=== PATIENT | male | born 1955 | race Caucasian/White ===

== ENCOUNTER 2021-12-05 19:42 | Observation (INO) | payer OTHER ==
[2021-12-05 20:25] LABS: Appearance,Urine Clear (Clear); Bilirubin,Urine Negative (Negative); Blood,Urine Negative (Negative); Color,Urine Yellow; Glucose,Urine (UA) Negative (Negative); Ketones,Urine Negative (Negative); Leukocyte Esterase,Urine Negative (Negative); Nitrite,Urine Negative (Negative); PH, Urine 7.5 (5.0-8.0); Protein,Urine Negative (Negative)
[2021-12-06 04:11] LABS: Albumin 4.1 g/dL (3.5-5.0); Calcium 8.7 mg/dL (8.4-10.2); Potassium 4.2 mmol/L (3.5-5.1); Total Bilirubin 0.4 mg/dL (0.2-1.3); Total Protein 6.3 g/dL (6.3-8.2)
[2021-12-06 04:22] LABS: Basophils % (A) 0 %; Eosinophils # (A) 0.1 k/uL (0-0.7); Eosinophils % (A) 3 %; HCT 37.7 % (39.0-53.0); HGB 13.3 gm/dL (13.0-17.5); Lymphocytes # (A) 0.5 k/uL (1.0-4.8); Lymphocytes % (A) 17 %; MCH 30.8 pg (25.0-35.0); MCHC 35.3 g/dL (31.0-37.0); MCV 87.1 fL (80.0-100.0); Monocytes # (A) 0.2 k/uL (0-1.0); Monocytes % (A) 7 %; Neutrophils # (A) 2.3 k/uL (1.3-7.7); Neutrophils % (A) 72 %; RBC 4.32 m/uL (4.30-5.90); RDW 15.8 % (11.5-15.5); WBC 3.2 k/uL (3.8-10.6)
[2021-12-06 04:40] LABS: Large Platelets Present; Platelet Count 48 k/uL (150-450)
--- NOTE | 2021-12-06 07:23 | ED ---
Male Urogenital HPI - General Chief complaint: Urogenital Stated complaint: Urinary retention Time Seen by Provider: 12/06/21 02:08 Source: patient Mode of arrival: ambulatory Limitations: no limitations - History of Present Illness Initial comments: This patient is a 66-year-old man who presents with the complaint that he feels like he needs to urinate more completely. Patient believes that he is not emptying his bladder when he does urinate. He denies having hematuria or dysuria. Patient denies abdominal pain. No fever or chills, no chest pain or dyspnea. MD Complaint: other -: days(s) Location: abdomen Severity: mild Quality: dull Consistency: constant Improves with: none, urination Worsens with: none - Related Data Previous Rx's Medication Instructions Recorded Phenazopyridine [Pyridium] 100 mg PO TID #6 tablet 12/06/21 Allergies Allergy/AdvReac Type Severity Reaction Status Date / Time No Known Allergies Allergy Verified 12/05/21 19:51 Review of Systems ROS Statement: Those systems with pertinent positive or pertinent negative responses have been documented in the HPI. ROS Other: All systems not noted in ROS Statement are negative. Constitutional: Denies: fever, chills Respiratory: Denies: cough, dyspnea Cardiovascular: Denies: chest pain, palpitations, edema Gastrointestinal: Denies: abdominal pain, vomiting, diarrhea, constipation, melena, hematochezia Genitourinary: Reports: as per HPI. Denies: dysuria, frequency, hematuria, testicular pain, testicular mass Musculoskeletal: Denies: back pain Skin: Denies: rash Neurological: Denies: headache, weakness, numbness Past Medical History Past Medical History: Unable to Obtain History of Any Multi-Drug Resistant Organisms: None Reported Past Surgical History: Unable to Obtain Past Psychological History: Schizophrenia Smoking Status: Current every day smoker Past Alcohol Use History: None Reported Past Drug Use History: None Reported General Exam Limitations: no limitations General appearance: alert, in no apparent distress Head exam: Present: atraumatic, normocephalic Eye exam: Present: normal appearance. Absent: scleral icterus, conjunctival injection ENT exam: Present: normal oropharynx Neck exam: Present: normal inspection Respiratory exam: Present: normal lung sounds bilaterally. Absent: respiratory distress, wheezes, rales, rhonchi, stridor Cardiovascular Exam: Present: regular rate, normal rhythm, normal heart sounds. Absent: systolic murmur, diastolic murmur, rubs, gallop GI/Abdominal exam: Present: soft. Absent: distended, tenderness, guarding, rebound, rigid, mass Extremities exam: Present: normal inspection, normal capillary refill. Absent: pedal edema, calf tenderness Back exam: Present: normal inspection. Absent: CVA tenderness (R), CVA tenderness (L) Neurological exam: Present: alert Skin exam: Present: warm, dry, intact, normal color. Absent: rash Course Vital Signs 12/05/21 12/06/21 19:49 03:42 Temperature 97.6 F 98.3 F Pulse Rate 69 67 Respiratory 18 17 Rate Blood Pressure 119/69 119/77 O2 Sat by Pulse 98 96 Oximetry Medical Decision Making - Medical Decision Making This patient is 66-year-old man presenting with complaint related to urination and feeling he is not emptying his bladder. Patient is cleared in relation to that complaint, and we're preparing to discharge patient when he ended up having large amount of melanotic stool which did subsequently test occult blood positive. This patient will be admitted for serial hemoglobin and surgery/GI consult. - Lab Data Result diagrams: 12/06/21 03:51 12/06/21 03:51 Lab Results 12/05/21 12/06/21 12/06/21 Range/Units 19:58 03:51 03:51 WBC 3.2 L (3.8-10.6) k/uL RBC 4.32 (4.30-5.90) m/uL Hgb 13.3 (13.0-17.5) gm/dL Hct 37.7 L (39.0-53.0) % MCV 87.1 (80.0-100.0) fL MCH 30.8 (25.0-35.0) pg MCHC 35.3 (31.0-37.0) g/dL RDW 15.8 H (11.5-15.5) % Plt Count 48 L (150-450) k/uL MPV 10.0 Neutrophils % 72 % Lymphocytes % 17 % Monocytes % 7 % Eosinophils % 3 % Basophils % 0 % Neutrophils # 2.3 (1.3-7.7) k/uL Lymphocytes # 0.5 L (1.0-4.8) k/uL Monocytes # 0.2 (0-1.0) k/uL Eosinophils # 0.1 (0-0.7) k/uL Basophils # 0.0 (0-0.2) k/uL Manual Slide Review Performed Large Platelets Present Sodium 139 (137-145) mmol/L Potassium 4.2 (3.5-5.1) mmol/L Chloride 104 (98-107) mmol/L Carbon Dioxide 24 (22-30) mmol/L Anion Gap 11 mmol/L BUN 22 H (9-20) mg/dL Creatinine 1.10 (0.66-1.25) mg/dL Est GFR (CKD-EPI)AfAm 79 (>60 ml/min/1.73 sqM) Est GFR (CKD-EPI)NonAf 69 (>60 ml/min/1.73 sqM) Glucose 139 H (74-99) mg/dL Calcium 8.7 (8.4-10.2) mg/dL Total Bilirubin 0.4 (0.2-1.3) mg/dL AST 30 (17-59) U/L ALT 26 (4-49) U/L Alkaline Phosphatase 87 (38-126) U/L Total Protein 6.3 (6.3-8.2) g/dL Albumin 4.1 (3.5-5.0) g/dL Urine Color Yellow Urine Appearance Clear (Clear) Urine pH 7.5 (5.0-8.0) Ur Specific [place] 1.020 (1.001-1.035) Urine Protein Negative (Negative) Urine Glucose (UA) Negative (Negative) Urine Ketones Negative (Negative) Urine Blood Negative (Negative) Urine Nitrite Negative (Negative) Urine Bilirubin Negative (Negative) Urine Urobilinogen 4.0 (<2.0) mg/dL Ur Leukocyte Esterase Negative (Negative) Stool Occult Blood (Negative) 12/06/21 Range/Units 08:19 WBC (3.8-10.6) k/uL RBC (4.30-5.90) m/uL Hgb (13.0-17.5) gm/dL Hct (39.0-53.0) % MCV (80.0-100.0) fL MCH (25.0-35.0) pg MCHC (31.0-37.0) g/dL RDW (11.5-15.5) % Plt Count (150-450) k/uL MPV Neutrophils % % Lymphocytes % % Monocytes % % Eosinophils % % Basophils % % Neutrophils # (1.3-7.7) k/uL Lymphocytes # (1.0-4.8) k/uL Monocytes # (0-1.0) k/uL Eosinophils # (0-0.7) k/uL Basophils # (0-0.2) k/uL Manual Slide Review Large Platelets Sodium (137-145) mmol/L Potassium (3.5-5.1) mmol/L Chloride (98-107) mmol/L Carbon Dioxide (22-30) mmol/L Anion Gap mmol/L BUN (9-20) mg/dL Creatinine (0.66-1.25) mg/dL Est GFR (CKD-EPI)AfAm (>60 ml/min/1.73 sqM) Est GFR (CKD-EPI)NonAf (>60 ml/min/1.73 sqM) Glucose (74-99) mg/dL Calcium (8.4-10.2) mg/dL Total Bilirubin (0.2-1.3) mg/dL AST (17-59) U/L ALT (4-49) U/L Alkaline Phosphatase (38-126) U/L Total Protein (6.3-8.2) g/dL Albumin (3.5-5.0) g/dL Urine Color Urine Appearance (Clear) Urine pH (5.0-8.0) Ur Specific [place] (1.001-1.035) Urine Protein (Negative) Urine Glucose (UA) (Negative) Urine Ketones (Negative) Urine Blood (Negative) Urine Nitrite (Negative) Urine Bilirubin (Negative) Urine Urobilinogen (<2.0) mg/dL Ur Leukocyte Esterase (Negative) Stool Occult Blood Positive (Negative) Disposition Clinical Impression: Dysuria, GI bleeding Disposition: ADMITTED IP TO THIS [facility] Condition: Good Instructions (If sedation given, give patient instructions): Dysuria (ED) Prescriptions: Phenazopyridine [Pyridium] 100 mg PO TID #6 tablet Is patient prescribed a controlled substance at d/c from ED?: No Referrals: None,Stated [Primary Care Provider] - 1-2 days
[2021-12-06] MEDS ORDERED: NALOXONE 0.4 MG/ML 1 ML VIAL IV PRN (08:50)
[2021-12-06] MEDS ORDERED: ACETAMINOPHEN TAB 325 MG TAB PO PRN ×2 (08:50→15:09)
[2021-12-06] MEDS ORDERED: SODIUM CHLORIDE 0.9% 1,000 ML IV SCH (09:00)
[2021-12-06 09:35] LABS: HCT 37.6 % (39.0-53.0); HGB 12.7 gm/dL (13.0-17.5); MCH 29.8 pg (25.0-35.0); MCHC 33.9 g/dL (31.0-37.0); MCV 87.8 fL (80.0-100.0); Mean Platelet Volume 10.8; RBC 4.28 m/uL (4.30-5.90); WBC 3.4 k/uL (3.8-10.6)
[2021-12-06 09:37] LABS: Platelet Count 55 k/uL (150-450)
--- NOTE | 2021-12-06 11:42 | P.HPIM ---
History of Present Illness H&P Date: 12/06/21 Chief Complaint: Urinary frequency Patient is a 66-year-old male with a past medical history of liver cirrhosis and alcohol abuse who is a poor historian and does not know what medications he takes presents to the ED because of frequent urination. Patient denies any urinary hesitancy or difficulty to start urinating and also states that he has a good urine stream. Workup in the ED was negative for UTI and bladder scan also negative for retention. Patient was getting ready to be discharged however he then had a large melanotic bowel movement. So then he was referred for admission. In the ED patient platelets were 48. Initial hemoglobin was 13.3. After the melanotic bowel movement his hemoglobin was stable at 12.7. Patient states that all his care is at the [facility]. He states that he has not had a drink in over a year. Review of Systems 10 ROS reviewed and are negative except as noted in HPI Past Medical History Past Medical History: Unable to Obtain History of Any Multi-Drug Resistant Organisms: None Reported Past Surgical History: Unable to Obtain Past Psychological History: Schizophrenia Smoking Status: Current every day smoker Past Alcohol Use History: None Reported Past Drug Use History: None Reported Medications and Allergies Home Medications Medication Instructions Recorded Confirmed Type Phenazopyridine [Pyridium] 100 mg PO TID #6 tablet 12/06/21 Rx Allergies Allergy/AdvReac Type Severity Reaction Status Date / Time No Known Allergies Allergy Verified 12/05/21 19:51 Physical Exam Osteopathic Statement: *. No significant issues noted on an osteopathic structural exam other than those noted in the History and Physical/Consult. Vitals: Vital Signs Temp Pulse Pulse Resp BP BP Pulse Ox 12/06/21 10:10 98 F 66 19 137/68 99 12/06/21 09:48 97.8 F 67 18 113/69 97 12/06/21 03:42 98.3 F 67 17 119/77 96 12/05/21 19:49 97.6 F 69 18 119/69 98 Intake and Output 12/05/21 12/06/21 12/06/21 22:59 06:59 14:59 Other: Weight 90.718 kg General: [Alert and oriented, well nourished, no acute distress, appears chronically debilitated]. Eye: [PERRL, EOMI, normal conjunctiva]. HENT: [Normocephalic, clear tympanic membranes, normal hearing, moist oral mucosa, no scleral icterus, no sinus tenderness]. Neck: [Supple, non-tender, no carotid bruits, no JVD, no lymphadenopathy]. Lungs: [Clear to auscultation and percussion, non-labored respiration]. Heart: [Normal rate, regular rhythm, no murmur, gallop or edema]. Abdomen: [Soft, non-tender, non-distended, normal bowel sounds, no masses]. Musculoskeletal: [Normal range of motion and strength, no tenderness or swelling]. Skin: [Skin is warm, dry and pink, no rashes or lesions]. Neurologic: [Awake, alert, and oriented X3, CN II-XII intact]. Psychiatric: [Cooperative, appropriate mood and affect]. Results CBC & Chem 7: 12/06/21 08:50 12/06/21 03:51 Labs: Abnormal Lab Results - Last 24 Hours (Table) 12/06/21 12/06/21 12/06/21 Range/Units 03:51 03:51 08:50 WBC 3.2 L 3.4 L (3.8-10.6) k/uL RBC 4.28 L (4.30-5.90) m/uL Hgb 12.7 L (13.0-17.5) gm/dL Hct 37.7 L 37.6 L (39.0-53.0) % RDW 15.8 H 16.0 H (11.5-15.5) % Plt Count 48 L 55 L (150-450) k/uL Lymphocytes # 0.5 L (1.0-4.8) k/uL BUN 22 H (9-20) mg/dL Glucose 139 H (74-99) mg/dL Assessment and Plan Assessment: Melanotic stool Suspect upper GI bleed Thrombocytopenia likely due to her liver cirrhosis -Stool occult is positive -Trend hemoglobin every 6 hours -Patient is hemodynamically stable -We'll transfuse 2 units of platelets -Check PT and PTT -IV protonix 40 mg twice a day -Clear liquid diet -GI consult Thrombocytopenia and leukopenia likely due to liver cirrhosis -We'll consult hematology -Patient is a less than 50 and also having active bleeding so transfuse 2 units of platelets Liver Cirrhosis -Compensated History of alcohol abuse History of polysubstance abuse including cocaine Patient states that he has not had a drink in over a year and he has not done drugs in many years. Patient does not know what medications he is on. He states that his care is at the [facility]. I asked the nurse to call his friend to try and confirm his medications. CODE STATUS: DNR/DNI DVT prophylaxis: mechanical Discussed with: Patient, ER, rn Anticipated length of stay < than [address]: home A total of 75 minutes was spent on the care of this complex patient more than 50% of the time was spent in counseling and care coordination.
[2021-12-06 11:51] LABS: INR 1.1 (<1.2); Partial Thromboplastin Time 27.9 sec (22.0-30.0); Prothrombin Time 11.9 sec (9.0-12.0)
[2021-12-06] MEDS: PANTOPRAZOLE 40 MG/10 ML VIAL IVP SCH ×2 (13:38→19:53)
--- NOTE | 2021-12-06 14:13 | P.CONS ---
History of Present Illness - Reason for Consult Consult date: 12/06/21 Thrombocytopenia, lymphopenia - Chief Complaint GI bleeding - History of Present Illness Mr. Foley is a 66-year-old gentleman with a noted history of liver cirrhosis and prior history of alcohol abuse as well as polysubstance abuse who initially presented to the ED with urinary retention. This issue had been resolved and the ED and had been cleared for discharge when he had a large melanotic bowel movement. Given this development, he was admitted to internal medicine for additional management and monitoring. CBC on initial presentation was significant for white blood cell count 3.2 (absolute lymphocyte count 0.5, absolute neutrophil count 2.3), hemoglobin 13.3, platelet count 48. Repeat CBC after the melanotic bowel movement noted a white blood cell count 3.4, hemoglobin 12.7, platelet count 55. Upon my discussion with Mr. Foley, he reports having had melanotic stools prior to presentation, but he is unable to quantify how many along with the duration of time elapsed since this started. He denies any current alcohol use, but noted drinking in the past. He is unable to quantify how long he had been drinking alcohol prior to abstinence. He reports crack cocaine use in the past, but denied any IV drug abuse. He reports having had loss of weight over the past 6 months to one year, losing about 20 pounds. He attributes this to not eating well, and stating "they don't make any good food". He lives with a roommate in an apartment, but says this is not an assisted living facility. He denies any fevers, chills, night sweats, or lymphadenopathy. He denies any pr ior history of blood clots in the legs or abdomen. Reports taking medications at home, but is unable to state what these medications are. Review of Systems 14 point review of systems conducted with pertinent positives and negatives as noted per HPI Past Medical History Past Medical History: GERD/Reflux, Hypertension, Prostate Disorder Additional Past Medical History / Comment(s): Hepatitis, History of Any Multi-Drug Resistant Organisms: None Reported Past Surgical History: Unable to Obtain Past Anesthesia/Blood Transfusion Reactions: No Reported Reaction Past Psychological History: Schizophrenia Additional Psychological History / Comment(s): Pt denies this he states, "That's a lable they put on me so they could get my money that's all." Smoking Status: Current every day smoker Past Alcohol Use History: None Reported Past Drug Use History: None Reported - Past Family History Father History Unknown: Yes Mother History Unknown: Yes Medications and Allergies Home Medications Medication Instructions Recorded Confirmed Type Acamprosate Calcium [Campral] 333 mg PO TID 12/06/21 12/06/21 History Acetaminophen Tab [Tylenol] 650 mg PO Q6H PRN 12/06/21 12/06/21 History Ascorbic Acid [Vitamin C] 250 mg PO DAILY@79912/06/21 12/06/21 History Cholecalciferol [Vitamin D3 (25 50 mcg PO DAILY@79912/06/21 12/06/21 History Mcg = 1000 Iu)] Cyanocobalamin (Vitamin B-12) 1,000 mcg PO DAILY@79912/06/21 12/06/21 History [Vitamin B-12] Daily-Jacey 1 tab PO DAILY@79912/06/21 12/06/21 History Ferrous Sulfate [Iron] 325 mg PO DAILY@79912/06/21 12/06/21 History Folic Acid 1 mg PO DAILY@79912/06/21 12/06/21 History Ibuprofen [Motrin] 800 mg PO TID PRN 12/06/21 12/06/21 History LORazepam [Ativan] 0.5 mg PO HS@199912/06/21 12/06/21 History Lurasidone [Latuda] 80 mg PO HS@199912/06/21 12/06/21 History Mirtazapine [Remeron] 15 mg PO HS@199912/06/21 12/06/21 History Omeprazole 20 mg PO DAILY@79912/06/21 12/06/21 History Phenazopyridine [Pyridium] 100 mg PO TID #6 tablet 12/06/21 Rx Tamsulosin HCl [Flomax] 0.8 mg PO DAILY@79912/06/21 12/06/21 History Thiamine [Vitamin B-1] 100 mg PO DAILY@79912/06/21 12/06/21 History lisinopriL [Prinivil] 10 mg PO DAILY@79912/06/21 12/06/21 History traZODone HCL 100 mg PO HS@199912/06/21 12/06/21 History Allergies Allergy/AdvReac Type Severity Reaction Status Date / Time No Known Allergies Allergy Verified 12/06/21 13:27 Physical Exam Vitals: Vital Signs Temp Pulse Pulse Resp BP BP Pulse Ox 12/06/21 10:10 98 F 66 19 137/68 99 12/06/21 09:48 97.8 F 67 18 113/69 97 12/06/21 03:42 98.3 F 67 17 119/77 96 12/05/21 19:49 97.6 F 69 18 119/69 98 Intake and Output 12/05/21 12/06/21 12/06/21 22:59 06:59 14:59 Other: Weight 90.718 kg 90.718 kg Fatigued-appearing gentleman - Constitutional General appearance: disheveled, no acute distress - EENT Eyes: EOMI - Respiratory Respiratory: bilateral: CTA - Cardiovascular Rhythm: regular - Gastrointestinal General gastrointestinal: hepatomegaly, normal bowel sounds, soft, no splenomegaly - Integumentary Integumentary: pale Results CBC & Chem 7: 12/06/21 08:50 12/06/21 03:51 Labs: Abnormal Lab Results - Last 24 Hours (Table) 12/06/21 12/06/21 12/06/21 Range/Units 03:51 03:51 08:50 WBC 3.2 L 3.4 L (3.8-10.6) k/uL RBC 4.28 L (4.30-5.90) m/uL Hgb 12.7 L (13.0-17.5) gm/dL Hct 37.7 L 37.6 L (39.0-53.0) % RDW 15.8 H 16.0 H (11.5-15.5) % Plt Count 48 L 55 L (150-450) k/uL Lymphocytes # 0.5 L (1.0-4.8) k/uL BUN 22 H (9-20) mg/dL Glucose 139 H (74-99) mg/dL Assessment and Plan Assessment: Mr. Foley is a 66-year-old gentleman who initially presented to the ED for urinary retention, but subsequently developed melena, for which he is currently admitted for. He does have evidence of lymphopenia and thrombocytopenia on labs for which hematology is consulted. Plan: #Lymphopenia, thrombocytopenia -He's had no prior lab documentation in either the [facility] system or locally at [facility] -This makes his baseline blood counts unclear at this time in addition to the fact that he is not a good historian -If he does in fact have cirrhosis, this could explain the thrombocytopenia -An addition, he did admit to prior substance abuse -Recommend obtaining PT/INR, a PTT, and fibrinogen to rule out DIC (unlikely given the current clinical presentation) -Recommend obtaining acute hepatitis panel and HIV antibodies given the potential history for cirrhosis, polysubstance abuse, and lymphopenia -Recommend obtaining vitamin B12 and folate given the weight loss and concern for imbalance diet -Obtaining medication list would be helpful to rule out potential medication- induced causes of thrombocytopenia #GI bleeding -Noted to have melanotic stool in the ED with reported melanotic stools at home of unclear quantity or duration -Agree with GI consult for workup and endoscopy -From hematology perspective, platelets should be transfused for platelets less than 50,000 given active bleeding -Endoscopy has been previously reported to have been safe with platelets above 20,000 -Transfuse for hemoglobin less than 7
[2021-12-06 15:08] LABS: HCT 39.8 % (39.0-53.0); HGB 12.8 gm/dL (13.0-17.5); MCH 30.3 pg (25.0-35.0); MCHC 32.3 g/dL (31.0-37.0); Mean Platelet Volume 10.7; RBC 4.24 m/uL (4.30-5.90); RDW 15.9 % (11.5-15.5); WBC 1.9 k/uL (3.8-10.6)
[2021-12-06 15:16] LABS: MCV 93.7 fL (80.0-100.0); Platelet Count 41 k/uL (150-450)
[2021-12-06 17:12] LABS: Hepatitis A Antibody IgM Nonreactive (Nonreactive); Hepatitis B Core IgM Nonreactive (Nonreactive); Hepatitis B Surface Antigen Nonreactive (Nonreactive); Hepatitis C IgG Antibody Reactive (Nonreactive)
[2021-12-06] MEDS: LURASIDONE 80 MG TAB PO SCH (19:52)
[2021-12-06] MEDS: LORazepam 0.5 MG TAB PO SCH (19:52)
[2021-12-06] MEDS: MIRTAZAPINE 15 MG TAB PO SCH (19:53)
[2021-12-06] MEDS ORDERED: traZODone HCL 100 MG TAB PO SCH (20:00)
[2021-12-06] MEDS: traZODone HCL 100 MG TAB PO SCH (21:00)
[2021-12-06 21:49] LABS: HCT 39.4 % (39.0-53.0); HGB 12.7 gm/dL (13.0-17.5); MCH 29.8 pg (25.0-35.0); MCHC 32.4 g/dL (31.0-37.0); MCV 92.1 fL (80.0-100.0); Mean Platelet Volume 11.2; RBC 4.27 m/uL (4.30-5.90); WBC 2.5 k/uL (3.8-10.6)
[2021-12-06 21:50] LABS: Platelet Count 56 k/uL (150-450)
[2021-12-07] MEDS ORDERED: PANTOPRAZOLE 40 MG TABLET PO SCH (08:00)
[2021-12-07 09:26] LABS: HIV 2 AB Non-Reactive (Non-Reactive); HIV AB P24 Non-Reactive (Non-Reactive); HIV P24 AG Non-Reactive (Non-Reactive)
[2021-12-07 09:29] LABS: HCT 39.2 % (39.6-50.0); HGB 13.1 g/dL (13.0-17.0); Immature Platelet Fraction 5.7 % (1.1-6.1); MCH 29.6 pg (27.0-32.0); MCHC 33.4 g/dL (32.0-37.0); MCV 88.5 fL (80.0-97.0); Mean Platelet Volume 11.5 fL (9.5-12.2); NRBC Per 100 WBC 0 /100 WBCS (0.0-0.0); Platelet Count 62 X 10*3/uL (140-440); RBC 4.43 X 10*6/uL (4.40-5.60); RBC Morphology NORMAL; RDW 15.9 % (11.5-14.5); WBC 2.41 X 10*3/uL (4.50-10.00)
--- NOTE | 2021-12-07 09:55 | P.CONS ---
History of Present Illness - Reason for Consult Consult date: 12/07/21 GI bleed Requesting physician: Doyle Balderas - Chief Complaint Urinary retention - History of Present Illness This is a 58-year-old male who presented to the emergency department yesterday with complaints of urinary retention and inability to fully empty his bladder. While in the emergency room his symptoms have resolved, however patient reportedly had a large maroon colored stool. He had a positive stool occult. Gastroenterology was consulted for GI bleed. Patient has a past medical history of alcohol abuse, drug abuse admits to crack cocaine, schizophrenia, current smoker, possible cirrhosis of the liver. On this admission patient was noted to be thrombocytopenic, hematology was consulted. They gave him 2 units of platelets for platelet count 48,000. Patient denies any anticoagulation or NSAID use. States he's been having maroon-colored stools and black stools off and on for some time. He could not give me specific time. He denies any abdominal pain, nausea or vomiting. He states he has had an EGD and colonoscopy in the past, again however he is not able to put a timeframe on it. Patient to come back positive for hepatitis C antibody, he states he was treated about 2 years ago, cannot tell me what medication he was on. Labs: UPC 2.4 hemoglobin 13 hematocrit 39 platelet count 62,000 INR 1.1 sodium 139 potassium 4.2 albumin 22 creatinine 1.10 total bili 0.4 AST 30 EST 26 alkaline phosphatase 87 Stool occult blood positive, hepatitis C antibody reactive Review of Systems REVIEW OF SYSTEMS: CARDIOPULMONARY: No chest pain or shortness of breath. Gastrointestinal: No epigastric or abdominal pain. No nausea or vomiting. No hematemesis, coffee-ground emesis. Melanoma. GENITOURINARY: No dysuria or hematuria. Urinary retention, patient states now resolved. MUSCULOSKELETAL: Reports normal range of motion., Joint pain. SKIN: No rashes. No jaundice. ENDOCRINE: No chills, fevers. No excessive weight gain or loss. No polydipsia or polyuria. PSYCHIATRIC: Unremarkable. NEUROLOGY: No change in mental status. Denies dizziness, headache. ENT: Vision unremarkable. CONSTITUTIONAL: No recent weight loss. No fever, chills, night sweats. Past Medical History Past Medical History: GERD/Reflux, Hypertension, Prostate Disorder Additional Past Medical History / Comment(s): Hepatitis, History of Any Multi-Drug Resistant Organisms: None Reported Past Surgical History: Unable to Obtain Past Anesthesia/Blood Transfusion Reactions: No Reported Reaction Past Psychological History: Schizophrenia Additional Psychological History / Comment(s): Pt denies this he states, "That's a lable they put on me so they could get my money that's all." Smoking Status: Current every day smoker Past Alcohol Use History: None Reported Past Drug Use History: None Reported - Past Family History Father History Unknown: Yes Mother History Unknown: Yes Medications and Allergies Home Medications Medication Instructions Recorded Confirmed Type Acamprosate Calcium [Campral] 333 mg PO TID 12/06/21 12/06/21 History Acetaminophen Tab [Tylenol] 650 mg PO Q6H PRN 12/06/21 12/06/21 History Ascorbic Acid [Vitamin C] 250 mg PO DAILY@79912/06/21 12/06/21 History Cholecalciferol [Vitamin D3 (25 50 mcg PO DAILY@79912/06/21 12/06/21 History Mcg = 1000 Iu)] Cyanocobalamin (Vitamin B-12) 1,000 mcg PO DAILY@79912/06/21 12/06/21 History [Vitamin B-12] Daily-Jacey 1 tab PO DAILY@79912/06/21 12/06/21 History Ferrous Sulfate [Iron] 325 mg PO DAILY@79912/06/21 12/06/21 History Folic Acid 1 mg PO DAILY@79912/06/21 12/06/21 History Ibuprofen [Motrin] 800 mg PO TID PRN 12/06/21 12/06/21 History LORazepam [Ativan] 0.5 mg PO HS@199912/06/21 12/06/21 History Lurasidone [Latuda] 80 mg PO HS@199912/06/21 12/06/21 History Mirtazapine [Remeron] 15 mg PO HS@199912/06/21 12/06/21 History Omeprazole 20 mg PO DAILY@79912/06/21 12/06/21 History Phenazopyridine [Pyridium] 100 mg PO TID #6 tablet 12/06/21 Rx Tamsulosin HCl [Flomax] 0.8 mg PO DAILY@79912/06/21 12/06/21 History Thiamine [Vitamin B-1] 100 mg PO DAILY@79912/06/21 12/06/21 History lisinopriL [Prinivil] 10 mg PO DAILY@79912/06/21 12/06/21 History traZODone HCL 400 mg PO HS@199912/06/21 12/06/21 History Allergies Allergy/AdvReac Type Severity Reaction Status Date / Time No Known Allergies Allergy Verified 12/06/21 13:27 Physical Exam Vitals: Vital Signs Temp Pulse Pulse Resp BP BP BP 12/07/21 07:00 97.8 F 89 18 149/86 12/07/21 02:35 97.9 F 66 17 129/68 12/06/21 19:35 97.7 F 62 18 137/71 12/06/21 18:10 98.4 F 73 16 145/80 12/06/21 17:20 97.6 F 62 16 135/73 12/06/21 17:00 97.9 F 62 16 113/66 12/06/21 16:51 97.6 F 62 14 105/63 12/06/21 16:46 97.6 F 62 14 105/63 12/06/21 16:04 97.5 F L 64 16 130/67 12/06/21 15:44 98.1 F 63 14 105/63 12/06/21 15:34 97.7 F 62 16 99/61 12/06/21 14:55 98.2 F 70 20 98/61 12/06/21 10:10 98 F 66 19 137/68 12/06/21 09:48 97.8 F 67 18 113/69 Pulse Ox 12/07/21 07:00 97 12/07/21 02:35 98 12/06/21 19:35 97 12/06/21 18:10 96 12/06/21 17:20 97 12/06/21 17:00 94 L 12/06/21 16:51 96 12/06/21 16:46 96 12/06/21 16:04 99 12/06/21 15:44 95 12/06/21 15:34 96 12/06/21 14:55 93 L 12/06/21 10:10 99 12/06/21 09:48 97 Intake and Output 09/25/22 09/26/22 09/26/22 22:59 06:59 14:59 Intake Total 906 Output Total 120 Balance 786 Intake: Oral 222 Blood Product 684 Platelet Pheresis Pas 346 Psoralen Unit [id number] Platelet Pheresis Pas 338 Psoralen Unit [id number] Output: Post Void Residual 120 Other: Voiding Method Toilet Diaper Incontinent # Voids 4 4 General appearance: The patient is alert, oriented, appears in no acute distress. HET: Head is normocephalic and atraumatic. Conjunctiva pink. Sclera anicteric. Neck: Supple without lymphadenopathy. Trachea midline. Heart: S1 S2. Regular rate and rhythm. Lungs: Clear to auscultation. Abdomen: Soft, nontender, nondistended with bowel sounds. No guarding or rigidity. Skin: No rashes. No jaundice. Extremities: Normal skin color and turgor. No pedal edema. Neurological: No focal deficits. Alert and oriented x3. Results CBC & Chem 7: 12/07/21 05:53 12/06/21 03:51 Labs: Abnormal Lab Results - Last 24 Hours (Table) 12/06/21 12/06/21 12/06/21 Range/Units 08:50 11:12 14:54 WBC 3.4 L 1.9 L (3.8-10.6) k/uL RBC 4.28 L 4.24 L (4.30-5.90) m/uL Hgb 12.7 L 12.8 L (13.0-17.5) gm/dL Hct 37.6 L (39.0-53.0) % RDW 16.0 H 15.9 H (11.5-15.5) % Plt Count 55 L 41 L (150-450) k/uL Plt Count Comment Hep C IgG Ab Reactive A (Nonreactive) 12/06/21 12/07/21 Range/Units 21:33 05:53 WBC 2.5 L 2.41 L (3.8-10.6) k/uL RBC 4.27 L (4.30-5.90) m/uL Hgb 12.7 L (13.0-17.5) gm/dL Hct 39.2 L (39.0-53.0) % RDW 16.0 H 15.9 H (11.5-15.5) % Plt Count 56 L 62 L (150-450) k/uL Plt Count Comment DECREASED A Hep C IgG Ab (Nonreactive) Assessment and Plan (1) GI bleeding Narrative/Plan: 58-year-old with a history of schizophrenia hepatitis C, alcohol abuse and drug abuse presented to the emergency room with urinary retention which resolved. During the ER visit he had a large room colored stool. Patient was admitted for further observation and GI bleed. Patient is poor historian states he had EGD and colonoscopy done however unsure when. States he has had prior melena. No anticoagulation. Unsure of a history of cirrhosis of the liver but states that he was positive for hepatitis C and treated 2 years ago. Possible etiologies of blood loss could be related to esophageal varices, gastritis, esophagitis, AVM, or other possible etiologies. With unknown duration on last EGD/colonoscopy, recommend both the EGD and colonoscopy during this hospitalization. Patient is refusing at this time. He does have a legal guardian, therefore will recommend social work consultation. Patient has now decided that he would proceed with EGD and colonoscopy. This will be scheduled for tomorrow. Current Visit: Yes Status: Acute Code(s): K92.2 - GASTROINTESTINAL HEMO RRHAGE, UNSPECIFIED SNOMED Code(s): 47583463 (2) Thrombocytopenia Current Visit: Yes Status: Acute Priority: Medium Code(s): D69.6 - THROMBOCYTOPENIA, UNSPECIFIED SNOMED Code(s): 755733733 (3) Positive hepatitis C antibody test Current Visit: Yes Status: Acute Code(s): R76.8 - OTHER SPECIFIED ABNORMAL IMMUNOLOGICAL FINDINGS IN SERUM SNOMED Code(s): 557729619 Plan: 1. Continue symptomatic and supportive care 2. Continue clear liquid diet, nothing by mouth after midnight 3. Avoid NSAIDs, anticoagulation 4. Daily CBC, transfuse for hemoglobin less than 7 5. Hepatitis C positive antibody, will order quantitative studies 6. Appreciate recommendations from hematology 7. Recommend EGD and colonoscopy, this will be scheduled for tomorrow. Please obtain consent from legal guardian. Please discuss with medicine team to make patient a full code. 8. Will order social work consult, patient has documented schizophrenia and has a legal guardian Thank you for this consultation, we will continue to follow. Dr. Damaris Gustafson I agree with the dictator's note, documented as a scribe by Aislinn Avila
[2021-12-07] MEDS: MULTIVITAMINS, THERA 1 EACH TAB PO SCH (10:33)
[2021-12-07] MEDS: TAMSULOSIN 0.4 MG CAP.ER.24H PO SCH (10:33)
[2021-12-07] MEDS: lisinopriL 10 MG TAB PO SCH (10:33)
[2021-12-07] MEDS: FERROUS SULFATE 325 MG TAB PO SCH (10:34)
[2021-12-07] MEDS: CYANOCOBALAMIN 500 MCG TAB PO SCH (10:35)
[2021-12-07] MEDS: CHOLECALCIFEROL 25 MCG (1000 IU) TABLET PO SCH (10:35)
[2021-12-07] MEDS: THIAMINE 100 MG TAB PO SCH (10:36)
[2021-12-07] MEDS: FOLIC ACID 1 MG TAB PO SCH (10:36)
[2021-12-07] MEDS: PANTOPRAZOLE 40 MG/10 ML VIAL IVP SCH ×2 (12:33→19:45)
[2021-12-07] MEDS ORDERED: PEG 3350 (236 GM/BTL) + LYTES 4,000 ML BOTTLE PO ONE (13:17)
--- NOTE | 2021-12-07 13:29 | P.PN ---
Subjective Progress Note Date: 12/07/21 Principal diagnosis: thrombocytopenia, leukopenia In follow-up today patient did not want to respond to questions, slightly irritable. He reported that he does have a history of hepatitis C but it was treated. He is denying any physical complaints at this time. Objective - Vital Signs Vital signs: Vital Signs Temp 97.8 F 12/07/21 07:00 Pulse 89 12/07/21 07:00 Resp 18 12/07/21 07:00 BP 149/86 12/07/21 07:00 Pulse Ox 97 12/07/21 07:00 FiO2 Intake & Output 12/06/21 12/07/21 12/07/21 18:59 06:59 18:59 Intake Total 1226 Output Total 120 Balance 1106 Weight 90.718 kg 90.718 kg Intake: Oral 542 Blood Product 684 Platelet Pheresis Pas 346 Psoralen Unit [id number] Platelet Pheresis Pas 338 Psoralen Unit [id number] Output: Post Void Residual 120 Other: Voiding Method Toilet Toilet Diaper Diaper Incontinent Incontinent # Voids 1 4 - Constitutional General appearance: Present: average body habitus, no acute distress - EENT ENT: Present: hearing grossly normal - Respiratory Respiratory: bilateral: CTA - Cardiovascular Rhythm: regular Heart sounds: normal: S1, S2 - Musculoskeletal Musculoskeletal: Present: strength equal bilaterally - Psychiatric Psychiatric: Present: A&O x's 3 - Labs CBC & Chem 7: 12/07/21 05:53 12/06/21 03:51 Labs: Abnormal Lab Results - Last 24 Hours (Table) 12/06/21 12/06/21 12/06/21 Range/Units 11:12 14:54 21:33 WBC 1.9 L 2.5 L (3.8-10.6) k/uL RBC 4.24 L 4.27 L (4.30-5.90) m/uL Hgb 12.8 L 12.7 L (13.0-17.5) gm/dL Hct (39.6-50.0) % RDW 15.9 H 16.0 H (11.5-15.5) % Plt Count 41 L 56 L (150-450) k/uL Plt Count Comment Hep C IgG Ab Reactive A (Nonreactive) 12/07/21 Range/Units 05:53 WBC 2.41 L (3.8-10.6) k/uL RBC (4.30-5.90) m/uL Hgb (13.0-17.5) gm/dL Hct 39.2 L (39.6-50.0) % RDW 15.9 H (11.5-15.5) % Plt Count 62 L (150-450) k/uL Plt Count Comment DECREASED A Hep C IgG Ab (Nonreactive) Assessment and Plan (1) Thrombocytopenia Current Visit: Yes Status: Acute Priority: Medium Code(s): D69.6 - THROMBOCYTOPENIA, UNSPECIFIED SNOMED Code(s): 626263574 (2) Leukopenia Current Visit: Yes Status: Acute Priority: Medium Code(s): D72.819 - DECREASED WHITE BLOOD CELL COUNT, UNSPECIFIED SNOMED Code(s): 45599329 Plan: Much of the bicytopenia workup is still pending. No deficiencies thus far noted. Iron studies more consistent with anemia of inflammation. No progression of cytopenias. No need for transfusions at this time. Ultrasound of the liver and spleen ordered. Hep C RNA ordered. Final recommendations based on completion of workup. Dr. chávez tests: I seen and examined patient, performed H&P, developed impression and plan of care. Discussed with dictator. Agree with documentation, dictated as a scribe
--- NOTE | 2021-12-07 13:31 | P.PN ---
Subjective Progress Note Date: 12/07/21 Patient was seen by GI and he refused EGD and colonoscopy. When I spoke with the patient he then agreed to having the EGD done. I also spoke with the legal guardian who give consent for the EGD. Objective - Vital Signs Vital signs: Vital Signs Temp 97.8 F 12/07/21 07:00 Pulse 89 12/07/21 07:00 Resp 18 12/07/21 07:00 BP 149/86 12/07/21 07:00 Pulse Ox 97 12/07/21 07:00 FiO2 Intake & Output 12/06/21 12/07/21 12/07/21 18:59 06:59 18:59 Intake Total 1226 Output Total 120 Balance 1106 Weight 90.718 kg 90.718 kg Intake: Oral 542 Blood Product 684 Platelet Pheresis Pas 346 Psoralen Unit [id number] Platelet Pheresis Pas 338 Psoralen Unit [id number] Output: Post Void Residual 120 Other: Voiding Method Toilet Toilet Diaper Diaper Incontinent Incontinent # Voids 1 4 - Exam General examination - Alert and Oriented 3 in NAD Heart - + S1S2 no murmurs Lungs - Clear to auscultation Abdomen soft NT ND +ve BS Extremities - No edema 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 - Moving all 4 extremities spontaneously Psych - Calm and cooperative - Labs CBC & Chem 7: 12/07/21 05:53 12/06/21 03:51 Labs: Abnormal Lab Results - Last 24 Hours (Table) 12/06/21 12/06/21 12/06/21 Range/Units 11:12 14:54 21:33 WBC 1.9 L 2.5 L (3.8-10.6) k/uL RBC 4.24 L 4.27 L (4.30-5.90) m/uL Hgb 12.8 L 12.7 L (13.0-17.5) gm/dL Hct (39.6-50.0) % RDW 15.9 H 16.0 H (11.5-15.5) % Plt Count 41 L 56 L (150-450) k/uL Plt Count Comment Hep C IgG Ab Reactive A (Nonreactive) 12/07/21 Range/Units 05:53 WBC 2.41 L (3.8-10.6) k/uL RBC (4.30-5.90) m/uL Hgb (13.0-17.5) gm/dL Hct 39.2 L (39.6-50.0) % RDW 15.9 H (11.5-15.5) % Plt Count 62 L (150-450) k/uL Plt Count Comment DECREASED A Hep C IgG Ab (Nonreactive) Assessment and Plan Assessment: Melanotic stool Suspect upper GI bleed Thrombocytopenia likely due to her liver cirrhosis -Stool occult is positive -Trend hemoglobin every 6 hours -> hemoglobin is stable this morning -Patient is hemodynamically stable -2 units of platelets transfused on admission -Coags are within normal limits -IV protonix 40 mg twice a day -Clear liquid diet -Patient initially refused EGD and colonoscopy. He is now amenable. I spoke with her legal guardian who give consent. GI was contacted to let them know that the patient is now amenable. GI said they'll do the EGD and colonoscopy tomorrow. Thrombocytopenia and leukopenia likely due to liver cirrhosis -Outpatient workup from hematology -Platelets are stable this morning Hepatitis C antibody positive -Appreciated workup from gastroenterology -> quantitative hepatitis C RNA ordered Liver Cirrhosis -Compensated History of alcohol abuse History of polysubstance abuse including cocaine Patient states that he has not had a drink in over a year and he has not done drugs in many years. No signs of alcohol withdrawal this morning Psychiatric issues Resume home meds CODE STATUS: DNR/DNI DVT prophylaxis: mechanical Discussed with: Patient, ER, rn Anticipated length of stay < than [address]: home
[2021-12-07 16:23] LABS: Protein, Total 6.2 g/dL (6.2-8.2)
[2021-12-07] MEDS: MIRTAZAPINE 15 MG TAB PO SCH (19:45)
[2021-12-07] MEDS: LURASIDONE 80 MG TAB PO SCH (19:45)
[2021-12-07] MEDS: LORazepam 0.5 MG TAB PO SCH (19:46)
[2021-12-07] MEDS: traZODone HCL 100 MG TAB PO SCH (19:46)
--- NOTE | 2021-12-08 09:22 | US ---
EXAMINATION TYPE: US abdomen complete DATE OF EXAM: 12/08/2021 COMPARISON: NONE CLINICAL HISTORY: EtOH history, thrombocytopenia, hepatitis C. Inpatient exam. Poor historian. TECHNIQUE: Multiple sonographic images of the abdomen are obtained. FINDINGS: EXAM MEASUREMENTS: Liver Length: 15.7 cm Gallbladder Wall: 0.1 cm CBD: 0.5 cm Spleen: 18.0 cm Right Kidney: 10.3 x 5.2 x 5.4 cm Left Kidney: 11.1 x 4.9 x 5.6 cm SENIOR UI UX DESIGNER NOTES: Limited due to bowel gas Pancreas: Obscured by bowel gas Liver: Scanned subcostally. Appears coarse in appearance. No prominent masses or lesions seen. Gallbladder: wnl, imaged supine only Evidence for sonographic Hudson's sign: neg CBD: wnl Spleen: Enlarged in size Right Kidney: No hydronephrosis or masses seen Left Kidney: No hydronephrosis or masses seen Upper IVC: wnl Abd Aorta: Obscured by overlying bowel gas The liver is not enlarged. The intrahepatic portion of the IVC is within normal limits, proximal and mid, distal abdominal aorta is not well seen. There is no evidence of cholelithiasis. Common bile duct is unremarkable. The spleen is enlarged. Kidneys are symmetric and free of hydronephrosis. No renal lesions are seen. IMPRESSION: There are limitations to the exam. There may be underlying hepatic steatosis, hepatocellular disease. Splenomegaly.
[2021-12-08 10:28] LABS: HGB 12.3 g/dL (13.0-17.0); Immature Platelet Fraction 6.8 % (1.1-6.1); MCH 30.1 pg (27.0-32.0); MCHC 34.2 g/dL (32.0-37.0); Mean Platelet Volume 11.4 fL (9.5-12.2); NRBC Per 100 WBC 0 /100 WBCS (0.0-0.0); Platelet Count 60 X 10*3/uL (140-440); RBC 4.09 X 10*6/uL (4.40-5.60); RDW 15.9 % (11.5-14.5)
[2021-12-08] MEDS ORDERED: SODIUM CHLORIDE 0.9% 500 ML 500 ML IV ONE (11:46)
[2021-12-08] MEDS ORDERED: PROPOFOL 10 MG/ML 20 ML VIAL IV ONE (11:50)
[2021-12-08] MEDS ORDERED: LIDOCAINE 2% INJ 20 MG/ML (2 ML VIAL) ONE (11:50)
[2021-12-08] MEDS: MULTIVITAMINS, THERA 1 EACH TAB PO SCH (11:56)
[2021-12-08] MEDS: CYANOCOBALAMIN 500 MCG TAB PO SCH (11:56)
[2021-12-08] MEDS: CHOLECALCIFEROL 25 MCG (1000 IU) TABLET PO SCH (11:56)
[2021-12-08] MEDS: FOLIC ACID 1 MG TAB PO SCH (11:56)
--- NOTE | 2021-12-08 12:08 | P.PCN ---
Date of Procedure: 12/08/21 Procedure(s) Performed: BRIEF HISTORY: Patient is a 66-year-old, pleasant, white male with history of chronic hep C infection that was treated years ago and possible underlying cirrhosis of the liver was admitted hospital with urinary retention. Once the hospital had a large maroon colored stools but hemoglobin remains stable at 12 g/dL. His and scheduled for an upper endoscopy as well as colonoscopy today. However the patient did not take his prep and colonoscopies.. PROCEDURE PERFORMED: Esophagogastroduodenoscopy with argon plasma coagulation. PREOPERATIVE DIAGNOSIS: Acute GI bleed. IV sedation per anesthesia. PROCEDURE: After informed consent was obtained, the patient was brought into the endoscopy unit. IV sedation was administered by Anesthesia under continuous monitoring. Initially the Olympus GIF-140 video endoscope was inserted into the mouth. Esophagus intubated without any difficulty. It was gradually advanced into the stomach and duodenum and carefully examined. The bulb and the second part of the duodenum appeared normal. The scope at this time was withdrawn to the stomach, adequately insufflated with air, and upon careful examination, mucosa of the antrum, appeared normal. There were several nonbleeding arterial venous malformations noted in the body, cardia and the fundus of the stomach measuring between 2 mm to 5 mm in size which were all coagulated using argon plasma with good hemostasis. Also changes in the fundus of the stomach consistent with portal hypertensive gastropathy.. The scope was then withdrawn into the esophagus. The GE junction was located at 39 cm from the incisors. Small distal esophageal varices seen. The rest of the esophagus appeared normal. There were no erosions or ulcerations seen and the patient tolerated the procedure well. IMPRESSION: 1. All nonbleeding esophageal varices. 2. 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 3. Mild to moderate portal hypertensive gastropathy RECOMMENDATIONS: The findings of this examination were discussed with the patient. Diet will be advanced as tolerated. He can be discharged home today and recommended outpatient colonoscopy
[2021-12-08] MEDS: lisinopriL 10 MG TAB PO SCH (13:01)
[2021-12-08] MEDS: PANTOPRAZOLE 40 MG/10 ML VIAL IVP SCH (13:01)
[2021-12-08] MEDS: THIAMINE 100 MG TAB PO SCH (13:01)
[2021-12-08] MEDS: FERROUS SULFATE 325 MG TAB PO SCH (13:01)
[2021-12-08] MEDS: TAMSULOSIN 0.4 MG CAP.ER.24H PO SCH (13:01)
--- NOTE | 2021-12-08 15:02 | P.DS ---
Providers Date of admission: 12/06/21 09:23 Expected date of discharge: 12/08/21 Attending physician: Nikki Munoz MD Consults: 12/06/21 08:47 Consult Physician Routine Consulting Provider: Mac Holder Consult Reason/Comments: thrombocytopenia with bleeding Do you want consulting provider notified?: Yes 12/06/21 08:50 Consult Physician Routine Consulting Provider: Sonal Gustafson Consult Reason/Comments: GI bleeding Do you want consulting provider notified?: Yes Primary care physician: Stated None Hospital Course: Patient is a 66-year-old male with a past medical history of liver cirrhosis and alcohol abuse who is a poor historian and does not know what medications he takes presents to the ED because of frequent urination. Patient denies any urinary hesitancy or difficulty to start urinating and also states that he has a good urine stream. Workup in the ED was negative for UTI and bladder scan also negative for retention. Patient was getting ready to be discharged however he then had a large melanotic bowel movement. So then he was referred for admission. In the ED patient platelets were 48. Initial hemoglobin was 13.3. After the melanotic bowel movement his hemoglobin was stable at 12.7. Patient states that all his care is at the [facility]. He states that he has not had a drink in over a year. Patient was started on Protonix 40 mg IV twice a day. He was transfused 2 units of platelets. Hematology followed the patient during his hospitalization. Hematology recommended acute hepatitis panel, HIV antibodies, B12 and folic acid. HIV was negative. Hepatitis C was reactive. INR is 1.1. B12 and folate was within normal limits. Gastric neurology was consulted and recommended EGD. 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 GI recommended advancing diet post procedure and cleared the patient for discharge home. Patient was seen and examined. No acute events overnight. Patient reported no more melanotic stools. His hemoglobin on the day of discharge was 12.3 with platelet count of 60. Patient is advised to taper tonics 40 mg by mouth twice a day. Jeremiah rossi is advised to follow-up with GI within 2 weeks of discharge. Patient verbalized understanding of the plan. General: non toxic, no distress, appears at stated age Derm: warm, dry Head: atraumatic, normocephalic, symmetric Eyes: EOMI, no lid lag, anicteric sclera Mouth: no lip lesion, mucus membranes moist Cardiovascular: S1S2 reg, no murmur Lungs: CTA bilateral, no rhonchi, no rales , no accessory muscle use Ext: no gross muscle atrophy, no edema, no contractures Neuro: no focal neuro deficits Psych: Alert, oriented, appropriate affect Discharge diagnosis: Melanotic stool Suspect upper GI bleed Thrombocytopenia likely due to her liver cirrhosis Thrombocytopenia and leukopenia likely due to liver cirrhosis Hepatitis C antibody positive Liver Cirrhosis History of alcohol abuse History of polysubstance abuse including cocaine Psychiatric issues This complex discharge took about 35 minutes complete. Pertinent Studies: [facility] Patient Condition at Discharge: Stable Plan - Discharge Summary Discharge Rx Participant: No New Discharge Prescriptions: New Phenazopyridine [Pyridium] 100 mg PO TID #6 tablet Pantoprazole [Protonix] 40 mg PO BID-W/MEALS #60 tab Continue Cholecalciferol [Vitamin D3 (25 Mcg = 1000 Iu)] 50 mcg PO DAILY@0800 Ascorbic Acid [Vitamin C] 250 mg PO DAILY@0800 traZODone HCL 400 mg PO HS@2000 Thiamine [Vitamin B-1] 100 mg PO DAILY@0800 Ferrous Sulfate [Iron] 325 mg PO DAILY@0800 Cyanocobalamin (Vitamin B-12) [Vitamin B-12] 1,000 mcg PO DAILY@0800 Mirtazapine [Remeron] 15 mg PO HS@2000 LORazepam [Ativan] 0.5 mg PO HS@2000 lisinopriL [Prinivil] 10 mg PO DAILY@0800 Lurasidone [Latuda] 80 mg PO HS@2000 Folic Acid 1 mg PO DAILY@0800 Daily-Jacey 1 tab PO DAILY@0800 Acetaminophen Tab [Tylenol] 650 mg PO Q6H PRN PRN Reason: Fever And/ Or Pain Acamprosate Calcium [Campral] 333 mg PO TID Tamsulosin HCl [Flomax] 0.8 mg PO DAILY@0800 Discontinued Ibuprofen [Motrin] 800 mg PO TID PRN PRN Reason: Pain Omeprazole 20 mg PO DAILY@0800 Discharge Medication List Acamprosate Calcium [Campral] 333 mg PO TID 12/06/21 [History] Acetaminophen Tab [Tylenol] 650 mg PO Q6H PRN 12/06/21 [History] Ascorbic Acid [Vitamin C] 250 mg PO DAILY@79912/06/21 [History] Cholecalciferol [Vitamin D3 (25 Mcg = 1000 Iu)] 50 mcg PO DAILY@79912/06/21 [History] Cyanocobalamin (Vitamin B-12) [Vitamin B-12] 1,000 mcg PO DAILY@79912/06/21 [History] Daily-Jacey 1 tab PO DAILY@79912/06/21 [History] Ferrous Sulfate [Iron] 325 mg PO DAILY@79912/06/21 [History] Folic Acid 1 mg PO DAILY@79912/06/21 [History] LORazepam [Ativan] 0.5 mg PO HS@199912/06/21 [History] Lurasidone [Latuda] 80 mg PO HS@199912/06/21 [History] Mirtazapine [Remeron] 15 mg PO HS@199912/06/21 [History] Phenazopyridine [Pyridium] 100 mg PO TID #6 tablet 12/06/21 [Rx] Tamsulosin HCl [Flomax] 0.8 mg PO DAILY@79912/06/21 [History] Thiamine [Vitamin B-1] 100 mg PO DAILY@79912/06/21 [History] lisinopriL [Prinivil] 10 mg PO DAILY@79912/06/21 [History] traZODone HCL 400 mg PO HS@199912/06/21 [History] Pantoprazole [Protonix] 40 mg PO BID-W/MEALS #60 tab 12/08/21 [Rx] Follow up Appointment(s)/Referral(s): None,Stated [Primary Care Provider] - 1-2 days Sonal Gustafson MD [STAFF PHYSICIAN] - 1 Week Ramu Oivedo MD [STAFF PHYSICIAN] - 1 Week Patient Instructions/Handouts: Dysuria (ED) Activity/Diet/Wound Care/Special Instructions: Diet: Low salt FU with PCP within 1-2 days of DC FU with GI within 1 week of DC FU with Hematology within 1 week of DC Discharge Disposition: HOME SELF-CARE
[2021-12-08 15:10] VITALS: BP 112/64; PULSE 63; RESP 18; TEMP 97.6
[2021-12-09 14:18] LABS: Free Kappa Lt Chain Qnt, Serum 2.53 mg/dL (0.33-1.94); Free Lambda Lt Chain Qnt, Seru 2.18 mg/dL (0.57-2.63)
[2021-12-10 14:35] LABS: Albumin 3.88 g/dL (3.80-4.90); Gamma Globulin 0.73 g/dL (0.70-1.50)
== END 2021-12-08 17:24 | disposition home or self-care (01) ==
LOC: EC 19:42 → EEVIPCON 12-06 09:23 → 6NMEDSUR 12-06 09:23
PROVIDERS: ADMIT Internal Medicine; ATTEND Internal Medicine
DX: I85.00 Esophageal varices without bleeding (principal); K31.811 Angiodysplasia of stomach and duodenum with bleeding; K76.6 Portal hypertension; K31.89 Other diseases of stomach and duodenum; K21.9 Gastro-esophageal reflux disease without esophagitis; R30.0 Dysuria; F20.9 Schizophrenia, unspecified; B18.2 Chronic viral hepatitis C; D69.6 Thrombocytopenia, unspecified; D72.810 Lymphocytopenia; K74.60 Unspecified cirrhosis of liver; I10 Essential (primary) hypertension; F14.11 Cocaine abuse, in remission; F10.11 Alcohol abuse, in remission; F17.200 Nicotine dependence, unspecified, uncomplicated; Z79.899 Other long term (current) drug therapy; Z66 Do not resuscitate
CPT/HCPCS: 96361 ×2; 96374; 96376 ×2; 99284; 51798; 36415; 86900; 86901; 87522; 80053; 80074; 82607; 82746; 85025; 85027 ×3; 85384; 85610; 85730; 86850; 82272; 81003; 84165; 87390; 86334; 83883; 76700; 43255; G0378 ×3; P9073; J2704; C9113 ×3; J2001

== ENCOUNTER 2022-06-14 20:35 | Observation (INO) | payer OTHER, MEDICARE ==
[2022-06-14] MEDS ORDERED: SODIUM CHLORIDE 0.9% 500 ML 500 ML IV STA (21:04)
--- NOTE | 2022-06-14 21:08 | ED ---
General Adult HPI - General Chief complaint: Weakness Stated complaint: Difficulty Breathing Time Seen by Provider: 06/14/22 20:42 Source: patient, EMS Mode of arrival: EMS Limitations: no limitations - History of Present Illness Initial comments: 66-year-old male presents to the emergency room via EMS with complaints of generalized weakness for several weeks, unable to care for himself and inability to sleep. Patient states he was having some shortness of breath today so he called the ambulance. States they gave him an albuterol treatment which has improved his breathing. Patient denies any chest pain. No fevers, no cough, no nausea vomiting or diarrhea. No headaches. States he lives with his roommate who suggested that he may be getting Alzheimer's and should be checked out. Primary care through [facility]. History of COPD, GERD, hypertension, schizophrenia, daily smoker. -: week(s) Severity scale (1-10): 0 Consistency: constant Associated Symptoms: shortness of breath, other (Inability to sleep) Treatments Prior to Arrival: other (Albuterol treatment by EMS) - Related Data Home Medications Medication Instructions Recorded Confirmed Acamprosate Calcium [Campral] 333 mg PO TID 12/06/21 06/14/22 Ascorbic Acid [Vitamin C] 250 mg PO BID 12/06/21 06/14/22 Cholecalciferol [Vitamin D3 (25 50 mcg PO DAILY 12/06/21 06/14/22 Mcg = 1000 Iu)] Ferrous Sulfate [Iron] 325 mg PO DAILY 12/06/21 06/14/22 LORazepam [Ativan] 0.5 mg PO BID 12/06/21 06/14/22 Lurasidone [Latuda] 80 mg PO HS 12/06/21 06/14/22 Tamsulosin HCl [Flomax] 0.8 mg PO DAILY 12/06/21 06/14/22 Thiamine [Vitamin B-1] 100 mg PO DAILY 12/06/21 06/14/22 lisinopriL [Prinivil] 10 mg PO DAILY 12/06/21 06/14/22 traZODone HCL 400 mg PO HS 12/06/21 06/14/22 Albuterol Nebulized [Ventolin 2.5 mg INHALATION RT-Q4H PRN 06/14/22 06/14/22 Nebulized] Albuterol Sulfate [Ventolin HFA] 1 puff INHALATION RT-Q4H PRN 06/14/22 06/14/22 Brimonidine Tartrate [Alphagan P 1 drop BOTH EYES DIRECTED 06/14/22 06/14/22 0.2% Ophth Soln] Finasteride [Proscar] 5 mg PO DAILY 06/14/22 06/14/22 Fluticasone Propion/Salmeterol 1 puff INHALATION RT-BID 06/14/22 06/14/22 [Fluticasone-Salmeterol 250-50] Ibuprofen [Motrin] 800 mg PO TID PRN 06/14/22 06/14/22 Lactose-Reduced Food [Ensure Plus] 1 can PO TID PRN 06/14/22 06/14/22 Lidocaine 5% Patch [Lidoderm] 1 patch TOPICAL DAILY PRN 06/14/22 06/14/22 Multivitamins, Thera [Multivitamin 1 tab PO DAILY 06/14/22 06/14/22 (formulary)] Paliperidone IM [Invega Sustenna] 156 mg IM DIRECTED 06/14/22 06/14/22 Pantoprazole [Protonix] 40 mg PO BID 06/14/22 06/14/22 Polyvinyl Alcohol/Povidone 1 applic BOTH EYES QID 06/14/22 06/14/22 [Freshkote Eye Drop] Allergies Allergy/AdvReac Type Severity Reaction Status Date / Time furosemide [From Lasix] Allergy UNKNOWN Verified 06/14/22 22:35 REACTION Iodinated Contrast Media Allergy UNKNOWN Verified 06/14/22 22:35 REACTION Review of Systems ROS Statement: Those systems with pertinent positive or pertinent negative responses have been documented in the HPI. ROS Other: All systems not noted in ROS Statement are negative. Past Medical History Past Medical History: GERD/Reflux, Hypertension, Prostate Disorder Additional Past Medical History / Comment(s): Hepatitis, History of Any Multi-Drug Resistant Organisms: None Reported Past Surgical History: Unable to Obtain Past Anesthesia/Blood Transfusion Reactions: No Reported Reaction Past Psychological History: Schizophrenia Smoking Status: Current every day smoker Past Alcohol Use History: None Reported Past Drug Use History: None Reported - Past Family History Father History Unknown: Yes Mother History Unknown: Yes General Exam Limitations: no limitations General appearance: alert, in no apparent distress Head exam: Present: atraumatic Eye exam: Present: PERRL, EOMI, other (left ptosis). Absent: scleral icterus, conjunctival injection, nystagmus ENT exam: Present: mucous membranes moist Neck exam: Absent: tenderness, meningismus Respiratory exam: Present: rales. Absent: respiratory distress, accessory muscle use Cardiovascular Exam: Present: regular rate GI/Abdominal exam: Present: soft. Absent: distended, tenderness, guarding, rebound, rigid Extremities exam: Present: normal capillary refill. Absent: pedal edema Back exam: Absent: tenderness, rash noted Neurological exam: Present: alert, oriented X3 Psychiatric exam: Present: normal affect, normal mood Skin exam: Present: warm, dry, normal color. Absent: cyanosis, diaphoretic, petechiae, pallor Course Vital Signs 06/14/22 06/14/22 06/14/22 20:40 22:07 23:35 Temperature 97.9 F Pulse Rate 80 68 76 Respiratory 18 20 18 Rate Blood Pressure 146/60 138/85 103/52 O2 Sat by Pulse 97 98 95 Oximetry EKG Findings - EKG Results: EKG: sinus rhythm (Ventricular rate of 68, [place] interval 0.179, QRS 0.108, QTc 0. 434, normal axis) Medical Decision Making - Medical Decision Making Chest x-ray interpreted by me shows no focal consolidation, trachea midline. R adiologist interpretation subtle scattered opacities which may represent an atypical pneumonia. Patient denies any fevers. No respiratory distress. Labs show white blood cell count 2.1 consistent with previous values in November 2021. Patient was given Zithromax and Rocephin for pneumonia EKG shows sinus rhythm, troponin negative at 0.012. Ventricular rate of 68, [place] interval 0.179, QRS 0.108, QTc 0.434, normal axis Patient with skin breakdown to penis from incontinence and poor hygiene. He will be admitted to the hospital with pneumonia and weakness with inability to care for himself. Case discussed with Dr. Catherine Was pt. sent in by a medical professional or institution (, PA, [employer], urgent care, hospital, or [place] health care facility...) When possible be specific @ -No Did you speak to anyone other than the patient for history (EMS, parent, family, police, friend...)? What history was obtained from this source @ -No Did you review nursing and triage notes (agree or disagree)? Why? @ -I reviewed and agree with nursing and triage notes Were old charts reviewed (outside hosp., previous admission, EMS record, old EKG, old radiological studies, urgent care reports/EKG's, [place] health care facility records)? Report findings @ -No old charts were reviewed Differential Diagnosis (chest pain, altered mental status, abdominal pain women, abdominal pain men, vaginal bleeding, weakness, fever, dyspnea, syncope, headache, dizziness, GI bleed, back pain, seizure, CVA, palpatations, mental health, musculoskeletal)? @ -Differential Weakness: Hypoglycemia, shock, sepsis, hyponatremia, anemia, infection, [place], ETOH, adverse medicine reaction, overdose, stroke, this is not meant to be an all-inclusive list. Differential Dyspnea: Coronary syndrome, arrhythmia, tamponade, asthma, COPD, pulmonary embolism, pneumonia, pneumothorax, pulmonary effusion, anaphylaxis, diabetic ketoacidosis, flailed chest, pulmonary contusion, diaphragmatic rupture, anemia, neuromuscular, this is not meant to be an all-inclusive list. EKG interpreted by me (3pts min.). @ -As above X-rays interpreted by me (1pt min.). @ -yes as above CT interpreted by me (1pt min.). @ -None done U/S interpreted by me (1pt. min.). @ -None done What testing was considered but not performed or refused? (CT, X-rays, U/S, labs)? Why? @ -None What meds were considered but not given or refused? Why? @ -None Did you discuss the management of the patient with other professionals (professionals i.e. , PA, [employer], lab, RT, psych nurse, social problems specialist, admiralty lawyer, teacher, animal services officer, dependency case manager)? Give summary @ -No Was smoking cessation discussed for >3mins.? @ -yes Was critical care preformed (if so, how long)? @ -No Were there social determinants of health that impacted care today? How? (Homelessness, low income, unemployed, alcoholism, drug addiction, transportation, low edu. Level, literacy, decrease access to med. care, [facility], rehab)? @ -No Was there de-escalation of care discussed even if they declined (Discuss DNR or withdrawal of care, Hospice)? DNR status @ -No What co-morbidities impacted this encounter? (DM, HTN, Smoking, COPD, CAD, Cancer, CVA, ARF, Chemo, Hep., AIDS, mental health diagnosis, sleep apnea, morbid obesity)? @ -COPD, GERD, hypertension, schizophrenia Was patient admitted / discharged? Hospital course, mention meds given and route, prescriptions, significant lab abnormalities, going to OR and other pertinent info. @ -Discharged Undiagnosed new problem with uncertain prognosis? @ -No Drug Therapy requiring intensive monitoring for toxicity (Heparin, Nitro, Insulin, Cardizem)? @ -No Were any procedures done? @ -No Diagnosis/symptom? @ -Pneumonia, weakness Acute, or Chronic, or Acute on Chronic? @ -Acute Uncomplicated (without systemic symptoms) or Complicated (systemic symptoms)? @ -Complicated due to inability to care for himself Side effects of treatment? @ -No Exacerbation, Progression, or Severe Exacerbation? @ -No Poses a threat to life or bodily function? How? (Chest pain, [place], [place], pneumonia, PE, COPD, DKA, ARF, appy, cholecystitis, CVA, Diverticulitis, Homicidal, Suicidal, threat to staff... and all critical care pts) @ -No - Lab Data Result diagrams: 06/14/22 21:28 06/14/22 21:28 Lab Results 06/14/22 06/14/22 06/14/22 Range/Units 21:04 21:28 21:28 WBC 2.1 L (3.8-10.6) k/uL RBC 3.90 L (4.30-5.90) m/uL Hgb 12.7 L (13.0-17.5) gm/dL Hct 36.7 L (39.0-53.0) % MCV 94.1 (80.0-100.0) fL MCH 32.5 (25.0-35.0) pg MCHC 34.6 (31.0-37.0) g/dL RDW 13.8 (11.5-15.5) % Plt Count 51 L (150-450) k/uL MPV 11.0 Neutrophils % 75 % Lymphocytes % 16 % Monocytes % 6 % Eosinophils % 2 % Basophils % 0 % Neutrophils # 1.6 (1.3-7.7) k/uL Lymphocytes # 0.3 L (1.0-4.8) k/uL Monocytes # 0.1 (0-1.0) k/uL Eosinophils # 0.0 (0-0.7) k/uL Basophils # 0.0 (0-0.2) k/uL Manual Slide Review Performed PT 12.4 H (9.0-12.0) sec INR 1.2 H (<1.2) APTT 25.1 (22.0-30.0) sec Sodium (137-145) mmol/L Potassium (3.5-5.1) mmol/L Chloride (98-107) mmol/L Carbon Dioxide (22-30) mmol/L Anion Gap mmol/L BUN (9-20) mg/dL Creatinine (0.66-1.25) mg/dL Est GFR (CKD-EPI)AfAm (>60 ml/min/1.73 sqM) Est GFR (CKD-EPI)NonAf (>60 ml/min/1.73 sqM) Glucose (74-99) mg/dL Plasma Lactic Acid Andrew (0.7-2.0) mmol/L Calcium (8.4-10.2) mg/dL Magnesium (1.6-2.3) mg/dL Total Bilirubin (0.2-1.3) mg/dL AST (17-59) U/L ALT (4-49) U/L Alkaline Phosphatase (38-126) U/L Troponin I (0.000-0.034) ng/mL Total Protein (6.3-8.2) g/dL Albumin (3.5-5.0) g/dL Urine Color Yellow Urine Appearance Clear (Clear) Urine pH 5.5 (5.0-8.0) Ur Specific Virgie 1.038 H (1.001-1.035) Urine Protein Trace H (Negative) Urine Glucose (UA) Trace H (Negative) Urine Ketones Trace H (Negative) Urine Blood Negative (Negative) Urine Nitrite Negative (Negative) Urine Bilirubin Negative (Negative) Urine Urobilinogen 6.0 (<2.0) mg/dL Ur Leukocyte Esterase Trace H (Negative) Urine RBC <1 (0-5) /hpf Urine WBC 2 (0-5) /hpf Ur Squamous Epith Cells <1 (0-4) /hpf Urine Mucus Rare H (None) /hpf 06/14/22 06/14/22 06/14/22 Range/Units 21:28 21:28 21:28 WBC (3.8-10.6) k/uL RBC (4.30-5.90) m/uL Hgb (13.0-17.5) gm/dL Hct (39.0-53.0) % MCV (80.0-100.0) fL MCH (25.0-35.0) pg MCHC (31.0-37.0) g/dL RDW (11.5-15.5) % Plt Count (150-450) k/uL MPV Neutrophils % % Lymphocytes % % Monocytes % % Eosinophils % % Basophils % % Neutrophils # (1.3-7.7) k/uL Lymphocytes # (1.0-4.8) k/uL Monocytes # (0-1.0) k/uL Eosinophils # (0-0.7) k/uL Basophils # (0-0.2) k/uL Manual Slide Review PT (9.0-12.0) sec INR (<1.2) APTT (22.0-30.0) sec Sodium 141 (137-145) mmol/L Potassium 4.8 (3.5-5.1) mmol/L Chloride 108 H (98-107) mmol/L Carbon Dioxide 25 (22-30) mmol/L Anion Gap 8 mmol/L BUN 31 H (9-20) mg/dL Creatinine 1.50 H (0.66-1.25) mg/dL Est GFR (CKD-EPI)AfAm 55 (>60 ml/min/1.73 sqM) Est GFR (CKD-EPI)NonAf 47 (>60 ml/min/1.73 sqM) Glucose 182 H (74-99) mg/dL Plasma Lactic Acid Andrew 1.8 (0.7-2.0) mmol/L Calcium 8.0 L (8.4-10.2) mg/dL Magnesium 2.1 (1.6-2.3) mg/dL Total Bilirubin 0.3 (0.2-1.3) mg/dL AST 27 (17-59) U/L ALT 24 (4-49) U/L Alkaline Phosphatase 111 (38-126) U/L Troponin I <0.012 (0.000-0.034) ng/mL Total Protein 5.8 L (6.3-8.2) g/dL Albumin 3.5 (3.5-5.0) g/dL Urine Color Urine Appearance (Clear) Urine pH (5.0-8.0) Ur Specific Virgie (1.001-1.035) Urine Protein (Negative) Urine Glucose (UA) (Negative) Urine Ketones (Negative) Urine Blood (Negative) Urine Nitrite (Negative) Urine Bilirubin (Negative) Urine Urobilinogen (<2.0) mg/dL Ur Leukocyte Esterase (Negative) Urine RBC (0-5) /hpf Urine WBC (0-5) /hpf Ur Squamous Epith Cells (0-4) /hpf Urine Mucus (None) /hpf Disposition Clinical Impression: Weakness, Pneumonia Disposition: ADMITTED IP TO THIS HOSP Decision Date: 06/14/22
[2022-06-14 21:49] LABS: Basophils % (A) 0 %; Eosinophils % (A) 2 %; HCT 36.7 % (39.0-53.0); HGB 12.7 gm/dL (13.0-17.5); Lymphocytes # (A) 0.3 k/uL (1.0-4.8); Lymphocytes % (A) 16 %; MCH 32.5 pg (25.0-35.0); MCHC 34.6 g/dL (31.0-37.0); MCV 94.1 fL (80.0-100.0); Monocytes # (A) 0.1 k/uL (0-1.0); Monocytes % (A) 6 %; Neutrophils # (A) 1.6 k/uL (1.3-7.7); Neutrophils % (A) 75 %; RDW 13.8 % (11.5-15.5); WBC 2.1 k/uL (3.8-10.6)
[2022-06-14 22:03] LABS: Albumin 3.5 g/dL (3.5-5.0); Magnesium 2.1 mg/dL (1.6-2.3); Potassium 4.8 mmol/L (3.5-5.1); Total Bilirubin 0.3 mg/dL (0.2-1.3); Total Protein 5.8 g/dL (6.3-8.2)
--- NOTE | 2022-06-14 22:14 | XR ---
EXAMINATION TYPE: XR chest 2V DATE OF EXAM: 06/14/2022 9:25 PM COMPARISON: None TECHNIQUE: XR chest 2V Frontal and lateral views of the chest. CLINICAL INDICATION:Male, 66 years old with history of Weakness; FINDINGS: Lungs/Pleura: Scattered subtle reticular and hazy opacities. No evidence of pneumothorax, focal conso lidation or pleural effusion. Pulmonary vascularity: Unremarkable. Heart/mediastinum: Cardiomediastinal silhouette is unremarkable. Musculoskeletal: No acute osseous pathology. IMPRESSION: Subtle scattered opacities which may represent an atypical pneumonia.
[2022-06-14 22:27] LABS: INR 1.2 (<1.2); Partial Thromboplastin Time 25.1 sec (22.0-30.0); Prothrombin Time 12.4 sec (9.0-12.0)
[2022-06-14] MEDS ORDERED: AZITHROMYCIN 500 MG in SODIUM CHLORIDE 0.9% 250 ML IVPB STA (22:33)
[2022-06-14] MEDS ORDERED: cefTRIAXone IN SWFI 1,000 MG/10 ML SYRINGE IVP STA (22:58)
[2022-06-14 23:03] LABS: Appearance,Urine Clear (Clear); Bilirubin,Urine Negative (Negative); Blood,Urine Negative (Negative); Color,Urine Yellow; Glucose,Urine (UA) Trace (Negative); Ketones,Urine Trace (Negative); Leukocyte Esterase,Urine Trace (Negative); Mucus,Urine Rare /hpf; Nitrite,Urine Negative (Negative); PH, Urine 5.5 (5.0-8.0); Protein,Urine Trace (Negative); RBC,Urine <1 /hpf (0-5); Specific Gravity,Urine 1.038 (1.001-1.035); Squamous Epithelial Cell,Urine <1 /hpf (0-4); WBC,Urine 2 /hpf (0-5)
[2022-06-14] MEDS ORDERED: ACETAMINOPHEN TAB 325 MG TAB PO PRN (23:10)
[2022-06-14] MEDS ORDERED: NALOXONE 0.4 MG/ML 1 ML VIAL IV PRN (23:10)
[2022-06-14] MEDS ORDERED: ALBUTEROL NEBULIZED 2.5 MG/3 ML INHALATION PRN (23:13)
[2022-06-14] MEDS ORDERED: NON FORMULARY DRUG (Lactose-Reduced Food [Ensure Plus] 237 ML Ml) PO PRN (23:13)
[2022-06-14 23:19] LABS: Platelet Count 51 k/uL (150-450)
[2022-06-15] MEDS: SODIUM CHLORIDE 0.9% 1,000 ML IV SCH ×3 (03:47→23:41)
--- NOTE | 2022-06-15 03:47 | P.HPIM ---
History of Present Illness H&P Date: 06/15/22 Chief Complaint: shortness of breath 66 year old male with hypertension he is a poor historian , only answers leading questions with yes and no. he comes in for worsening shortness of breath of few weeks duration along with non productive cough, denies any Fever, chills, chest pain , hemoptysis , body aches, sore throat, runny nose, recent travel or hospital stay , denies history of blood clots. denies any known sick contacts. denies tobacco smoking, illicit drugs or alcohol patient provides very limited history Review of Systems ROS unobtainable: due to mental status Past Medical History Past Medical History: GERD/Reflux, Hypertension, Prostate Disorder Additional Past Medical History / Comment(s): Hepatitis, History of Any Multi-Drug Resistant Organisms: None Reported Past Surgical History: Unable to Obtain Past Anesthesia/Blood Transfusion Reactions: No Reported Reaction Past Psychological History: Schizophrenia Smoking Status: Current every day smoker Past Alcohol Use History: None Reported Past Drug Use History: None Reported - Past Family History Father History Unknown: Yes Mother History Unknown: Yes Medications and Allergies Home Medications Medication Instructions Recorded Confirmed Type Acamprosate Calcium [Campral] 333 mg PO TID 12/06/21 06/14/22 History Ascorbic Acid [Vitamin C] 250 mg PO BID 12/06/21 06/14/22 History Cholecalciferol [Vitamin D3 (25 50 mcg PO DAILY 12/06/21 06/14/22 History Mcg = 1000 Iu)] Ferrous Sulfate [Iron] 325 mg PO DAILY 12/06/21 06/14/22 History LORazepam [Ativan] 0.5 mg PO BID 12/06/21 06/14/22 History Lurasidone [Latuda] 80 mg PO HS 12/06/21 06/14/22 History Tamsulosin HCl [Flomax] 0.8 mg PO DAILY 12/06/21 06/14/22 History Thiamine [Vitamin B-1] 100 mg PO DAILY 12/06/21 06/14/22 History lisinopriL [Prinivil] 10 mg PO DAILY 12/06/21 06/14/22 History traZODone HCL 400 mg PO HS 12/06/21 06/14/22 History Albuterol Nebulized [Ventolin 2.5 mg INHALATION RT-Q4H PRN 06/14/22 06/14/22 History Nebulized] Albuterol Sulfate [Ventolin HFA] 1 puff INHALATION RT-Q4H PRN 06/14/22 06/14/22 History Brimonidine Tartrate [Alphagan P 1 drop BOTH EYES DIRECTED 06/14/22 06/14/22 History 0.2% Ophth Soln] Finasteride [Proscar] 5 mg PO DAILY 06/14/22 06/14/22 History Fluticasone Propion/Salmeterol 1 puff INHALATION RT-BID 06/14/22 06/14/22 History [Fluticasone-Salmeterol 250-50] Ibuprofen [Motrin] 800 mg PO TID PRN 06/14/22 06/14/22 History Lactose-Reduced Food [Ensure Plus] 1 can PO TID PRN 06/14/22 06/14/22 History Lidocaine 5% Patch [Lidoderm] 1 patch TOPICAL DAILY PRN 06/14/22 06/14/22 History Multivitamins, Thera [Multivitamin 1 tab PO DAILY 06/14/22 06/14/22 History (formulary)] Paliperidone IM [Invega Sustenna] 156 mg IM DIRECTED 06/14/22 06/14/22 History Pantoprazole [Protonix] 40 mg PO BID 06/14/22 06/14/22 History Polyvinyl Alcohol/Povidone 1 applic BOTH EYES QID 06/14/22 06/14/22 History [Freshkote Eye Drop] Allergies Allergy/AdvReac Type Severity Reaction Status Date / Time furosemide [From Lasix] Allergy UNKNOWN Verified 06/14/22 22:35 REACTION Iodinated Contrast Media Allergy UNKNOWN Verified 06/14/22 22:35 REACTION Physical Exam Vitals: Vital Signs Temp Pulse Resp BP Pulse Ox 06/15/22 02:08 82 16 112/64 99 06/14/22 23:35 76 18 103/52 95 06/14/22 22:07 68 20 138/85 98 06/14/22 20:40 97.9 F 80 18 146/60 97 Intake and Output 06/14/22 06/14/22 06/15/22 14:59 22:59 06:59 Other: Weight 81.647 kg Constitutional: No acute distress, sleeping easliy arousable Eyes: Anicteric sclerae, moist conjunctiva, Pupils equal round reactive to light ENMT: NC/AT Oropharynx clear, no erythema, or exudates Neck: Supple, no masses, or JVD No carotid bruits No thyromegaly Lungs: Clear to auscultation Clear to percussion Normal respiratory effort, no accessory muscle use Cardiovascular: Heart regular in rate and rhythm, No murmurs, gallops, or rubs No peripheral edema Abdominal: Soft Nontender, no guarding, rebound or rigidity Abdomen moving with respiration Normoactive bowel sounds No hepatomegaly, No splenomegaly No palpable mass No abdominal wall hernia noted Skin: Normal temperature, tone, texture, turgor No induration Extremities: No digital cyanosis No clubbing Pedal pulses intact and symmetrical Radial pulses intact and symmetrical No calf tenderness Psychiatric: Alert and oriented to person, place Neuro Muscles Strength 4/5 in all 4 extremities Sensation to light touch grossly present throughout Cranial nerves II-XII grossly intact Lymphatics: no palpable cervical or supraclavicular lymph nodes Results CBC & Chem 7: 06/14/22 21:28 06/14/22 21:28 Labs: Abnormal Lab Results - Last 24 Hours (Table) 06/14/22 06/14/22 06/14/22 Range/Units 21:04 21:28 21:28 WBC 2.1 L (3.8-10.6) k/uL RBC 3.90 L (4.30-5.90) m/uL Hgb 12.7 L (13.0-17.5) gm/dL Hct 36.7 L (39.0-53.0) % Plt Count 51 L (150-450) k/uL Lymphocytes # 0.3 L (1.0-4.8) k/uL PT 12.4 H (9.0-12.0) sec INR 1.2 H (<1.2) Chloride (98-107) mmol/L BUN (9-20) mg/dL Creatinine (0.66-1.25) mg/dL Glucose (74-99) mg/dL Calcium (8.4-10.2) mg/dL Total Protein (6.3-8.2) g/dL Ur Specific [place] 1.038 H (1.001-1.035) Urine Protein Trace H (Negative) Urine Glucose (UA) Trace H (Negative) Urine Ketones Trace H (Negative) Ur Leukocyte Esterase Trace H (Negative) Urine Mucus Rare H (None) /hpf 06/14/22 Range/Units 21:28 WBC (3.8-10.6) k/uL RBC (4.30-5.90) m/uL Hgb (13.0-17.5) gm/dL Hct (39.0-53.0) % Plt Count (150-450) k/uL Lymphocytes # (1.0-4.8) k/uL PT (9.0-12.0) sec INR (<1.2) Chloride 108 H (98-107) mmol/L BUN 31 H (9-20) mg/dL Creatinine 1.50 H (0.66-1.25) mg/dL Glucose 182 H (74-99) mg/dL Calcium 8.0 L (8.4-10.2) mg/dL Total Protein 5.8 L (6.3-8.2) g/dL Ur Specific [place] (1.001-1.035) Urine Protein (Negative) Urine Glucose (UA) (Negative) Urine Ketones (Negative) Ur Leukocyte Esterase (Negative) Urine Mucus (None) /hpf Assessment and Plan Assessment: 66 year old male with hypertension , presented due to worsening shortness of br eath over past few weeks. I discussed the case with ED doc, patient has leukopenia and CXR changes suggestive of atypical pneumonia , I accepted the admission for IV antibiotics for pneumonia with anticipated length of stay < 2 midnights pneumonia atypical follow up cultures tylenol for fever azithromycin IVPB 500 mg daily X 3 days rocephine 2 gm IVPB daily supplemental oxygen as needed IVF hydration with normal saline 100 cc per hour monitor vital signs COVID negative bicytopenia (leukopenia 2.1 , adn anemia 12.7) continnue to monitor HECTOR (BUN 31 , cr 1.5) avoid nephrotoxic meds IVF hydration with normal saline 100 cc per hour monitor urine output hold lisinopril DVT PPX heparin sc tid 5000 units full code
[2022-06-15] MEDS ORDERED: lisinopriL 10 MG TAB PO SCH (09:00)
[2022-06-15] MEDS: FERROUS SULFATE 325 MG TAB PO SCH (09:06)
[2022-06-15] MEDS: THIAMINE 100 MG TAB PO SCH (09:06)
[2022-06-15] MEDS: CHOLECALCIFEROL 25 MCG (1000 IU) TABLET PO SCH (09:06)
[2022-06-15] MEDS: MULTIVITAMINS, THERA 1 EACH TAB PO SCH (09:06)
[2022-06-15] MEDS: ASCORBIC ACID 500 MG TAB PO SCH ×2 (09:06→21:46)
[2022-06-15] MEDS: HEPARIN SODIUM,PORCINE/PF 5,000 UNIT/0.5 ML SYRINGE SQ SCH ×3 (09:06→23:41)
[2022-06-15] MEDS: LORazepam 0.5 MG TAB PO SCH ×2 (09:06→21:45)
[2022-06-15] MEDS: FINASTERIDE 5 MG TAB PO SCH (09:06)
[2022-06-15] MEDS: PANTOPRAZOLE 40 MG TABLET PO SCH ×2 (09:06→18:46)
[2022-06-15] MEDS: TAMSULOSIN 0.4 MG CAP.ER.24H PO SCH (09:07)
[2022-06-15] MEDS: ARTIFICIAL TEARS-HYPROMELLOSE DROPS 15 ML BTL BOTH EYES SCH ×4 (09:12→21:47)
[2022-06-15] MEDS: SYMBICORT 80-4.5 MCG INHALER INHALATION SCH ×2 (09:20→22:18)
[2022-06-15] MEDS: ACAMPROSATE CALCIUM 333 MG TABLET.DR PO SCH ×3 (11:10→21:45)
--- NOTE | 2022-06-15 11:58 | P.PN ---
Progress Note - Text Progress Note Date: 06/15/22 Hospitalist follow-up note: Patient seen and examined at bedside. Patient currently denies chest pain, shortness breath, nausea, vomiting, fever, or chills. No acute changes overnight.
[2022-06-15 13:49] LABS: HCT 35.2 % (39.6-50.0); HGB 11.7 g/dL (13.0-17.0); MCH 31.8 pg (27.0-32.0); MCHC 33.2 g/dL (32.0-37.0); MCV 95.7 fL (80.0-97.0); Mean Platelet Volume 12.3 fL (9.5-12.2); NRBC Per 100 WBC 0 /100 WBCS (0.0-0.0); Platelet Count 50 X 10*3/uL (140-440); RBC 3.68 X 10*6/uL (4.40-5.60); RDW 13.6 % (11.5-14.5); WBC 2.51 X 10*3/uL (4.50-10.00)
[2022-06-15 13:50] LABS: Immature Platelet Fraction 8.8 % (1.1-6.1)
[2022-06-15 15:51] LABS: African American GFR (CKD) 59.4 (60.0-200.0); Anion Gap 9.9 mmol/L (10.00-18.00); BUN/Creat Ratio 24.14 Ratio (12.00-20.00); Blood Urea Nitrogen 33.8 mg/dL (9.0-27.0); Calcium 8.2 mg/dL (8.7-10.3); Carbon Dioxide 24.1 mmol/L (20.0-27.5); Non-African American GFR(CKD) 51.3 (60.0-200.0); Potassium 4.5 mmol/L (3.5-5.5)
[2022-06-15 16:01] LABS: African American GFR (CKD) 75 (>60 ml/min/1.73 sqM); Anion Gap 6 mmol/L; Blood Urea Nitrogen 32 mg/dL (9-20); Carbon Dioxide 25 mmol/L (22-30); Chloride 112 mmol/L (98-107); Glucose 114 mg/dL (74-99); Non-African American GFR(CKD) 65 (>60 ml/min/1.73 sqM); Potassium 4.5 mmol/L (3.5-5.1); Sodium 143 mmol/L (137-145)
[2022-06-15 20:06] LABS: % Iron Saturation 47.06 (15.00-50.00); Iron 195 ug/dL (65-175); Total Iron Binding Capacity 414 ug/dL (228-460)
[2022-06-15 20:51] LABS: Glucose,Whole Blood 134 mg/dL (70-110)
[2022-06-15] MEDS: traZODone HCL 100 MG TAB PO SCH (21:45)
[2022-06-15] MEDS: LURASIDONE 80 MG TAB PO SCH (21:45)
[2022-06-15] MEDS: BRIMONIDINE TARTRATE 0.2% DROPS 5 ML BTL BOTH EYES SCH (21:47)
[2022-06-16] MEDS: AZITHROMYCIN 500 MG in SODIUM CHLORIDE 0.9% 250 ML IVPB SCH ×2 (00:58→23:17)
[2022-06-16 08:49] LABS: Basophils % (A) 0 %; Eosinophils # (A) 0.1 k/uL (0-0.7); Eosinophils % (A) 6 %; HGB 12.3 gm/dL (13.0-17.5); Lymphocytes # (A) 0.4 k/uL (1.0-4.8); Lymphocytes % (A) 27 %; MCH 32.9 pg (25.0-35.0); MCHC 35.1 g/dL (31.0-37.0); MCV 93.6 fL (80.0-100.0); Monocytes # (A) 0.1 k/uL (0-1.0); Monocytes % (A) 7 %; Neutrophils % (A) 59 %; RBC 3.73 m/uL (4.30-5.90); RDW 13.5 % (11.5-15.5); WBC 1.7 k/uL (3.8-10.6)
[2022-06-16 08:50] LABS: Platelet Count 44 k/uL (150-450)
[2022-06-16 09:10] LABS: ALT 26 U/L (4-49); AST 26 U/L (17-59); African American GFR (CKD) >90 (>60 ml/min/1.73 sqM); Albumin 3.3 g/dL (3.5-5.0); Albumin/Globulin Ratio 1.5; Alkaline Phosphatase 72 U/L (38-126); Anion Gap 7 mmol/L; Blood Urea Nitrogen 26 mg/dL (9-20); Calcium 7.9 mg/dL (8.4-10.2); Carbon Dioxide 23 mmol/L (22-30); Chloride 111 mmol/L (98-107); Globulin 2.2 g/dL; Glucose 103 mg/dL (74-99); Non-African American GFR(CKD) 87 (>60 ml/min/1.73 sqM); Potassium 4.5 mmol/L (3.5-5.1); Sodium 141 mmol/L (137-145); Total Bilirubin 0.3 mg/dL (0.2-1.3); Total Protein 5.5 g/dL (6.3-8.2)
[2022-06-16] MEDS: SYMBICORT 80-4.5 MCG INHALER INHALATION SCH ×2 (09:25→20:09)
[2022-06-16] MEDS: PANTOPRAZOLE 40 MG TABLET PO SCH ×2 (09:42→16:55)
[2022-06-16] MEDS: ACAMPROSATE CALCIUM 333 MG TABLET.DR PO SCH ×3 (09:42→21:24)
[2022-06-16] MEDS: LORazepam 0.5 MG TAB PO SCH ×2 (09:44→21:23)
[2022-06-16] MEDS: MULTIVITAMINS, THERA 1 EACH TAB PO SCH (09:44)
[2022-06-16] MEDS: FERROUS SULFATE 325 MG TAB PO SCH (09:44)
[2022-06-16] MEDS: THIAMINE 100 MG TAB PO SCH (09:44)
[2022-06-16] MEDS: FINASTERIDE 5 MG TAB PO SCH (09:44)
[2022-06-16] MEDS: CHOLECALCIFEROL 25 MCG (1000 IU) TABLET PO SCH (09:59)
[2022-06-16] MEDS: TAMSULOSIN 0.4 MG CAP.ER.24H PO SCH (09:59)
[2022-06-16] MEDS: ASCORBIC ACID 500 MG TAB PO SCH ×2 (10:36→21:23)
[2022-06-16] MEDS: ARTIFICIAL TEARS-HYPROMELLOSE DROPS 15 ML BTL BOTH EYES SCH ×4 (10:36→21:24)
[2022-06-16] MEDS: BRIMONIDINE TARTRATE 0.2% DROPS 5 ML BTL BOTH EYES SCH ×2 (10:37→21:23)
[2022-06-16] MEDS: HEPARIN SODIUM,PORCINE/PF 5,000 UNIT/0.5 ML SYRINGE SQ SCH ×2 (10:38→16:55)
[2022-06-16] MEDS: SODIUM CHLORIDE 0.9% 1,000 ML IV SCH ×2 (13:00→23:17)
--- NOTE | 2022-06-16 17:08 | P.PN ---
Subjective Progress Note Date: 06/16/22 Hospital course: Patient is a very pleasant 66-year-old male with a past medical history of hypertension, prostate disorder, hepatitis, schizophrenia, COPD with continued nicotine dependence, and GERD. He presented to the emergency department on 06/15/22 with a chief complaint of shortness of breath. Patient underwent full evaluation. He was found to have mendoza cytopenia with WBC count of 2.51, hemoglobin of 11.7, and platelet count of 50 along with acute kidney injury with BUN of 31, creatinine 1.5, and GFR 47. EKG was completed showing normal sinus rhythm at 68 bpm with no noted T wave or ST abnormality showing no signs of acute ischemia. Chest x-ray completed revealing subtle scattered opacities consistent with atypical pneumonia. Patient was started on IV antibiotics and admitted under our services to observation unit at this time. Covid PCR was negative. Physical exam: Vital signs reviewed and stable. General: Nontoxic, no distress and appears stated age. Derm: Skin warm and dry, normal coloration for ethnicity. Head: Atraumatic, normocephalic and symmetric. Eyes: EOMs intact, no lid lag, and anicteric sclera Mouth: no lip lesions, mucus membranes moist Cardiovascular: regular rate and rhythm with normal S1S2, no murmur, positive posterior tibial pulses bilaterally, and cap refill < 2 seconds. Lungs: Respirations even, regular, and unlabored on room air. Lungs CTA bilaterally, no rhonchi, no rales, no wheezing, and no accessory muscle usage. Abdominal: soft, nontender to palpation, no guarding, no appreciable organomegaly Ext: ROM intact. No gross muscle atrophy, no edema, no contractures Neuro: Speech clear, face symmetrical and CN II-XII grossly intact with no noted focal neuro deficits Psych: Alert and oriented to person and place, Appropriate and pleasant affect. Assessment and Plan of Care: Atypical pneumonia COPD with continued nicotine dependence -Chest x-ray reviewed and consistent with atypical pneumonia. -Continue IV antibiotics with azithromycin and Rocephin -Recommend smoking cessation Acute kidney injury -Morning labs reviewed. BUN 26, creatinine 0.90, and GFR of 87 from initial labs of BUN 31, creatinine 1.50, and GFR 47. -Acute kidney injury Resolved with IV fluid hydration. Pancytopenia -Pancytopenia appears to be chronic and is noted with labs dating back to 12/06/21 upon chart review. Schizophrenia -Continue medication regimen with Latuda, Invega, and trazodone. CODE STATUS: Full code DVT prophylaxis: Heparin Discussed with: Patient, social work, and RN Anticipated discharge date: Likely 24-[address]: Return to home/prison with [facility] Patient was seen independently by Nurse Pracitioner. This document was prepared using [employer] dictation software. Please allow for errors in drilling plant operator, while rare they do occur. Nico Rodriguez NP rendered care for this patient independently, reviewed the findings and plan as documented in the note above. I did not physically speak with or examine the patient on this date. Objective - Vital Signs Vital signs: Vital Signs Temp 97.7 F 06/16/22 07:52 Pulse 55 L 06/16/22 07:52 Resp 16 06/16/22 07:52 BP 148/74 06/16/22 07:52 Pulse Ox 94 L 06/16/22 07:52 FiO2 Intake & Output 06/15/22 06/16/22 06/16/22 18:59 06:59 18:59 Intake Total 120 590 Balance 120 590 Intake: Oral 120 590 Other: Voiding Method Toilet Urinal Diaper # Voids 4 # Bowel Movements 1 - Labs CBC & Chem 7: 06/18/22 06:41 06/18/22 06:41 Labs: Abnormal Lab Results - Last 24 Hours (Table) 06/15/22 06/15/22 06/15/22 Range/Units 07:55 07:55 07:55 WBC 2.51 L (4.50-10.00) X 10*3/uL RBC 3.68 L (4.40-5.60) X 10*6/uL Hgb 11.7 L (13.0-17.0) g/dL Hct 35.2 L (39.6-50.0) % Plt Count 50 L (140-440) X 10*3/uL MPV 12.3 H (9.5-12.2) fL Immature Plt Fraction 8.8 H (1.1-6.1) % Chloride 111 H (96-109) mmol/L Anion Gap 9.90 L (10.00-18.00) mmol/L BUN 33.8 H (9.0-27.0) mg/dL Est GFR (CKD-EPI)AfAm 59.4 L (60.0-200.0) Est GFR (CKD-EPI)NonAf 51.3 L (60.0-200.0) BUN/Creatinine Ratio 24.14 H (12.00-20.00) Ratio Glucose 111 H (70-110) mg/dL POC Glucose (mg/dL) (70-110) mg/dL Calcium 8.2 L (8.7-10.3) mg/dL Iron (65-175) ug/dL Folate 34.00 H (4.40-31.00) ng/mL 06/15/22 06/15/22 Range/Units 12:47 20:50 WBC (4.50-10.00) X 10*3/uL RBC (4.40-5.60) X 10*6/uL Hgb (13.0-17.0) g/dL Hct (39.6-50.0) % Plt Count (140-440) X 10*3/uL MPV (9.5-12.2) fL Immature Plt Fraction (1.1-6.1) % Chloride 112 H (96-109) mmol/L Anion Gap (10.00-18.00) mmol/L BUN 32 H (9.0-27.0) mg/dL Est GFR (CKD-EPI)AfAm (60.0-200.0) Est GFR (CKD-EPI)NonAf (60.0-200.0) BUN/Creatinine Ratio (12.00-20.00) Ratio Glucose 114 H (70-110) mg/dL POC Glucose (mg/dL) 134 H (70-110) mg/dL Calcium 8.0 L (8.7-10.3) mg/dL Iron 195 H (65-175) ug/dL Folate (4.40-31.00) ng/mL Microbiology - Last 24 Hours (Table) 06/14/22 22:50 Blood Culture - Preliminary Blood No Growth after 24 hours 06/14/22 22:40 Blood Culture - Preliminary Blood No Growth after 24 hours
[2022-06-16] MEDS: traZODone HCL 100 MG TAB PO SCH (21:23)
[2022-06-16] MEDS: LURASIDONE 80 MG TAB PO SCH (21:24)
[2022-06-17] MEDS: HEPARIN SODIUM,PORCINE/PF 5,000 UNIT/0.5 ML SYRINGE SQ SCH ×4 (00:49→23:48)
[2022-06-17] MEDS: SODIUM CHLORIDE 0.9% 1,000 ML IV SCH ×3 (08:09→19:44)
[2022-06-17] MEDS: SYMBICORT 80-4.5 MCG INHALER INHALATION SCH ×2 (08:23→19:53)
[2022-06-17] MEDS: ARTIFICIAL TEARS-HYPROMELLOSE DROPS 15 ML BTL BOTH EYES SCH ×4 (09:22→21:31)
[2022-06-17] MEDS: BRIMONIDINE TARTRATE 0.2% DROPS 5 ML BTL BOTH EYES SCH ×2 (09:22→21:31)
[2022-06-17] MEDS: FINASTERIDE 5 MG TAB PO SCH (09:22)
[2022-06-17] MEDS: THIAMINE 100 MG TAB PO SCH (09:22)
[2022-06-17] MEDS: CHOLECALCIFEROL 25 MCG (1000 IU) TABLET PO SCH (09:23)
[2022-06-17] MEDS: TAMSULOSIN 0.4 MG CAP.ER.24H PO SCH (09:23)
[2022-06-17] MEDS: ASCORBIC ACID 500 MG TAB PO SCH ×2 (09:23→21:31)
[2022-06-17] MEDS: ACAMPROSATE CALCIUM 333 MG TABLET.DR PO SCH ×3 (09:24→21:31)
[2022-06-17] MEDS: FERROUS SULFATE 325 MG TAB PO SCH (09:24)
[2022-06-17] MEDS: PANTOPRAZOLE 40 MG TABLET PO SCH ×2 (09:24→17:32)
[2022-06-17] MEDS: MULTIVITAMINS, THERA 1 EACH TAB PO SCH (09:24)
[2022-06-17] MEDS: LORazepam 0.5 MG TAB PO SCH ×2 (09:24→21:31)
--- NOTE | 2022-06-17 17:39 | P.PN ---
Subjective Progress Note Date: 06/17/22 Hospital course: Patient is a very pleasant 66-year-old male with a past medical history of hypertension, prostate disorder, hepatitis, schizophrenia, COPD with continued nicotine dependence, and GERD. He presented to the emergency department on 06/15/22 with a chief complaint of shortness of breath. Patient underwent full evaluation. He was found to have mendoza cytopenia with WBC count of 2.51, hemoglobin of 11.7, and platelet count of 50 along with acute kidney injury with BUN of 31, creatinine 1.5, and GFR 47. EKG was completed showing normal sinus rhythm at 68 bpm with no noted T wave or ST abnormality showing no signs of acute ischemia. Chest x-ray completed revealing subtle scattered opacities consistent with atypical pneumonia. Patient was started on IV antibiotics and admitted under our services to observation unit at this time. Covid PCR was negative. Physical exam: Vital signs reviewed and stable. General: Nontoxic, no distress and appears stated age. Derm: Skin warm and dry, normal coloration for ethnicity. Head: Atraumatic, normocephalic and symmetric. Eyes: EOMs intact, no lid lag, and anicteric sclera Mouth: no lip lesions, mucus membranes moist Cardiovascular: regular rate and rhythm with normal S1S2, no murmur, positive posterior tibial pulses bilaterally, and cap refill < 2 seconds. Lungs: Respirations even, regular, and unlabored on room air. Lungs CTA bilaterally, no rhonchi, no rales, no wheezing, and no accessory muscle usage. Abdominal: soft, nontender to palpation, no guarding, no appreciable organomegaly Ext: ROM intact. No gross muscle atrophy, no edema, no contractures Neuro: Speech clear, face symmetrical and CN II-XII grossly intact with no noted focal neuro deficits Psych: Alert and oriented to person and place, Appropriate and pleasant affect. Assessment and Plan of Care: Atypical pneumonia COPD with continued nicotine dependence -Chest x-ray reviewed and consistent with atypical pneumonia. -Continue IV antibiotics day 2 with azithromycin 500 mg daily and Rocephin 2 g IVPB daily. -Recommend smoking cessation Acute kidney injury, Resolved with IV fluid hydration. Pancytopenia -Pancytopenia appears to be chronic and is noted with labs dating back to 12/06/21 upon chart review. Schizophrenia -Continue medication regimen with Latuda, Invega, and trazodone. CODE STATUS: Full code DVT prophylaxis: Heparin Discussed with: Patient, social work, and RN Anticipated discharge date: Likely tomorrow morning after patient receives third dose of IV antibiotics then discharged home on oral to complete course. Anticipated discharge place: Return to home/[facility]ci with [facility] Patient was seen independently by Nurse Pracitioner. This document was prepared using [employer] dictation software. Please allow for errors in complaint evaluation supervisor, while rare they do occur. Nico Rodriguez BANDSAW OPERATOR rendered care for this patient independently, reviewed the findings and plan as documented in the note above. I did not physically speak with or examine the patient on this date. Objective - Vital Signs Vital signs: Vital Signs Temp 98.5 F 06/17/22 12:42 Pulse 56 L 06/17/22 12:42 Resp 16 06/17/22 12:42 BP 168/78 06/17/22 12:42 Pulse Ox 97 06/17/22 12:42 FiO2 Intake & Output 06/16/22 06/17/22 06/17/22 18:59 06:59 18:59 Intake Total 1100 1200 Output Total 600 550 Balance 500 1200 -550 Intake: Intake, IV Titration 1100 1200 Amount Sodium Chloride 0.9% 1, 1050 1200 000 ml @ 100 mls/hr IV . Q10H ABDULKADIR Rx#:[id number] cefTRIAXone 2 gm In 50 Sodium Chloride 0.9% 50 ml @ 100 mls/hr IVPB Q24H ABDULKADIR Rx#:[id number] Output: Urine 600 550 Other: Voiding Method Toilet Toilet Toilet Urinal Urinal # Voids 6 2 - Labs CBC & Chem 7: 06/18/22 06:41 06/18/22 06:41 Labs: Microbiology - Last 24 Hours (Table) 06/14/22 22:50 Blood Culture - Preliminary Blood No Growth after 48 hours 06/14/22 22:40 Blood Culture - Preliminary Blood No Growth after 48 hours
[2022-06-17] MEDS: traZODone HCL 100 MG TAB PO SCH (21:30)
[2022-06-17] MEDS: LURASIDONE 80 MG TAB PO SCH (21:31)
[2022-06-17] MEDS: AZITHROMYCIN 500 MG in SODIUM CHLORIDE 0.9% 250 ML IVPB SCH (23:48)
[2022-06-18 07:18] LABS: Basophils % (A) 0 %; Eosinophils # (A) 0.1 k/uL (0-0.7); Eosinophils % (A) 3 %; HCT 33.4 % (39.0-53.0); HGB 11.4 gm/dL (13.0-17.5); Lymphocytes # (A) 0.1 k/uL (1.0-4.8); Lymphocytes % (A) 5 %; MCH 32.5 pg (25.0-35.0); MCV 95.8 fL (80.0-100.0); Mean Platelet Volume 10.8; Monocytes # (A) 0.1 k/uL (0-1.0); Monocytes % (A) 5 %; Neutrophils # (A) 1.7 k/uL (1.3-7.7); Neutrophils % (A) 86 %; RBC 3.49 m/uL (4.30-5.90); RDW 13.4 % (11.5-15.5)
[2022-06-18 07:23] LABS: Platelet Count 40 k/uL (150-450)
[2022-06-18 07:28] LABS: African American GFR (CKD) >90 (>60 ml/min/1.73 sqM); Anion Gap 5 mmol/L; Blood Urea Nitrogen 23 mg/dL (9-20); Calcium 7.4 mg/dL (8.4-10.2); Carbon Dioxide 22 mmol/L (22-30); Chloride 112 mmol/L (98-107); Glucose 114 mg/dL (74-99); Non-African American GFR(CKD) >90 (>60 ml/min/1.73 sqM); Potassium 3.8 mmol/L (3.5-5.1); Sodium 139 mmol/L (137-145)
[2022-06-18] MEDS: SYMBICORT 80-4.5 MCG INHALER INHALATION SCH (07:37)
[2022-06-18] MEDS: TAMSULOSIN 0.4 MG CAP.ER.24H PO SCH (10:00)
[2022-06-18] MEDS: HEPARIN SODIUM,PORCINE/PF 5,000 UNIT/0.5 ML SYRINGE SQ SCH (10:00)
[2022-06-18] MEDS: CHOLECALCIFEROL 25 MCG (1000 IU) TABLET PO SCH (10:01)
[2022-06-18] MEDS: MULTIVITAMINS, THERA 1 EACH TAB PO SCH (10:02)
[2022-06-18] MEDS: FERROUS SULFATE 325 MG TAB PO SCH (10:02)
[2022-06-18] MEDS: THIAMINE 100 MG TAB PO SCH (10:02)
[2022-06-18] MEDS: FINASTERIDE 5 MG TAB PO SCH (10:02)
[2022-06-18] MEDS: ASCORBIC ACID 500 MG TAB PO SCH (10:03)
[2022-06-18] MEDS: LORazepam 0.5 MG TAB PO SCH (10:03)
[2022-06-18] MEDS: PANTOPRAZOLE 40 MG TABLET PO SCH (10:03)
[2022-06-18] MEDS: BRIMONIDINE TARTRATE 0.2% DROPS 5 ML BTL BOTH EYES SCH (10:17)
[2022-06-18] MEDS: ARTIFICIAL TEARS-HYPROMELLOSE DROPS 15 ML BTL BOTH EYES SCH (10:17)
[2022-06-18] MEDS: ACAMPROSATE CALCIUM 333 MG TABLET.DR PO SCH (10:25)
[2022-06-18 12:31] VITALS: BP 120/71; PULSE 73; RESP 13; TEMP 98.9
--- NOTE | 2022-06-18 12:52 | P.DS ---
Providers Date of admission: 06/14/22 23:10 Expected date of discharge: 06/18/22 Attending physician: Joseph Bermudez MD Primary care physician: Stated None Hospital Course: Discharge Diagnosis: Atypical pneumonia, patient received 3 day course of azithromycin and Rocephin and discharged home on doxycycline 100 mg twice daily for 4 additional days to total 7 days of antibiotic therapy for treatment of atypical pneumonia with underlying COPD. COPD with continued nicotine dependence. Patient encouraged to stop smoking. Patient also provided with information on chronic lung disease and infection prevention. Acute kidney injury, Resolved with IV fluid hydration. Pancytopenia. Pancytopenia appears to be chronic and is noted with labs dating back to 12/06/21 upon chart review. Schizophrenia. Continue medication regimen with Latuda, Invega, and trazodone. Hospital Course: Patient is a very pleasant 66-year-old male with a past medical history of hypertension, prostate disorder, hepatitis, schizophrenia, COPD with continued nicotine dependence, and GERD. He presented to the emergency department on 06/15/22 with a chief complaint of shortness of breath. Patient underwent full evaluation. He was found to have mendoza cytopenia with WBC count of 2.51, hemoglobin of 11.7, and platelet count of 50 along with acute kidney injury with BUN of 31, creatinine 1.5, and GFR 47. EKG was completed showing normal sinus rhythm at 68 bpm with no noted T wave or ST abnormality showing no signs of acute ischemia. Chest x-ray completed revealing subtle scattered opacities consistent with atypical pneumonia. Patient was started on IV antibiotics and admitted under our services to observation unit at this time. Covid PCR was negative. Patient was admitted under our services. Throughout hospitalization, patient received 3 day course of azithromycin and Rocephin and condition was stable. Patient being discharged home on doxycycline 100 mg twice daily for 4 additional days to total 7 days of antibiotic therapy for treatment of atypical pneumonia with underlying COPD. patient instructed he will need to follow up outpatient with his PCP in 2 days. Patient reports being free from any complaints or concerns at this time. He is medically stable for discharge. medical social worker, states that she talked to patient's guardian and patient to be provided with cab voucher to return home with [facility]. Physical exam: Vital signs reviewed and stable. General: Nontoxic, no distress and appears stated age. Derm: Skin warm and dry, normal coloration for ethnicity. Head: Atraumatic, normocephalic and symmetric. Eyes: EOMs intact, no lid lag, and anicteric sclera Mouth: no lip lesions, mucus membranes moist Cardiovascular: regular rate and rhythm with normal S1S2, no murmur, positive posterior tibial pulses bilaterally, and cap refill < 2 seconds. Lungs: Respirations even, regular, and unlabored on room air. Lungs CTA bilaterally, no rhonchi, no rales, no wheezing, and no accessory muscle usage. Abdominal: soft, nontender to palpation, no guarding, no appreciable organ omegaly Ext: ROM intact. No gross muscle atrophy, no edema, no contractures Neuro: Speech clear, face symmetrical and CN II-XII grossly intact with no noted focal neuro deficits Psych: Alert and oriented to person and place, Appropriate and pleasant affect. A total of 31 minutes of time were spent preparing this complex discharge summary. Pt was discharged on 06/18/22 at 12:48 PM Patient was seen independently by Nurse Practitioner. This document was prepared using [employer] dictation software. Please allow for errors in network cable installer while rare they do occur. I reviewed the documentation as provided by the JAYNE above, who is the original author of this note. I agree with the documented assessment and plan, with the following changes: none Patient Condition at Discharge: Stable Plan - Discharge Summary Discharge Rx Participant: No New Discharge Prescriptions: New Doxycycline [Vibramycin] 100 mg PO BID 4 Days #8 capsule Continue Cholecalciferol [Vitamin D3 (25 Mcg = 1000 Iu)] 50 mcg PO DAILY Ascorbic Acid [Vitamin C] 250 mg PO BID traZODone HCL 400 mg PO HS Thiamine [Vitamin B-1] 100 mg PO DAILY Ferrous Sulfate [Iron] 325 mg PO DAILY Multivitamins, Thera [Multivitamin (formulary)] 1 tab PO DAILY Ibuprofen [Motrin] 800 mg PO TID PRN PRN Reason: Pain Finasteride [Proscar] 5 mg PO DAILY Albuterol Sulfate [Ventolin HFA] 1 puff INHALATION RT-Q4H PRN PRN Reason: Shortness Of Breath Albuterol Nebulized [Ventolin Nebulized] 2.5 mg INHALATION RT-Q4H PRN PRN Reason: Shortness Of Breath Paliperidone IM [Invega Sustenna] 156 mg IM Q21D LORazepam [Ativan] 0.5 mg PO BID lisinopriL [Prinivil] 10 mg PO DAILY Lurasidone [Latuda] 80 mg PO HS Acamprosate Calcium [Campral] 333 mg PO TID Tamsulosin HCl [Flomax] 0.8 mg PO DAILY Pantoprazole [Protonix] 40 mg PO BID Lactose-Reduced Food [Ensure Plus] 1 can PO TID PRN PRN Reason: SUPPLEMENT Lidocaine 5% Patch [Lidoderm 5% Patch] 1 patch TOPICAL DAILY PRN PRN Reason: Pain Fluticasone Propion/Salmeterol [Fluticasone-Salmeterol 250-50] 1 puff INHALATION RT-BID Brimonidine Tartrate [Alphagan P 0.2% Ophth Soln] 1 drop BOTH EYES DIRECTED Polyvinyl Alcohol/Povidone [Fresh[place] Eye Drop] 1 applic BOTH EYES QID Discharge Medication List Acamprosate Calcium [Campral] 333 mg PO TID 12/06/21 [History] Ascorbic Acid [Vitamin C] 250 mg PO BID 12/06/21 [History] Cholecalciferol [Vitamin D3 (25 Mcg = 1000 Iu)] 50 mcg PO DAILY 12/06/21 [History] Ferrous Sulfate [Iron] 325 mg PO DAILY 12/06/21 [History] LORazepam [Ativan] 0.5 mg PO BID 12/06/21 [History] Lurasidone [Latuda] 80 mg PO HS 12/06/21 [History] Tamsulosin HCl [Flomax] 0.8 mg PO DAILY 12/06/21 [History] Thiamine [Vitamin B-1] 100 mg PO DAILY 12/06/21 [History] lisinopriL [Prinivil] 10 mg PO DAILY 12/06/21 [History] traZODone HCL 400 mg PO HS 12/06/21 [History] Albuterol Nebulized [Ventolin Nebulized] 2.5 mg INHALATION RT-Q4H PRN 06/14/22 [History] Albuterol Sulfate [Ventolin HFA] 1 puff INHALATION RT-Q4H PRN 06/14/22 [History] Brimonidine Tartrate [Alphagan P 0.2% Ophth Soln] 1 drop BOTH EYES DIRECTED 06/14/22 [History] Finasteride [Proscar] 5 mg PO DAILY 06/14/22 [History] Fluticasone Propion/Salmeterol [Fluticasone-Salmeterol 250-50] 1 puff INHALATION RT-BID 06/14/22 [History] Ibuprofen [Motrin] 800 mg PO TID PRN 06/14/22 [History] Lactose-Reduced Food [Ensure Plus] 1 can PO TID PRN 06/14/22 [History] Lidocaine 5% Patch [Lidoderm 5% Patch] 1 patch TOPICAL DAILY PRN 06/14/22 [History] Multivitamins, Thera [Multivitamin (formulary)] 1 tab PO DAILY 06/14/22 [History] Paliperidone IM [Invega Sustenna] 156 mg IM Q21D 06/14/22 [History] Pantoprazole [Protonix] 40 mg PO BID 06/14/22 [History] Polyvinyl Alcohol/Povidone [Freshkote Eye Drop] 1 applic BOTH EYES QID 06/14/22 [History] Doxycycline [Vibramycin] 100 mg PO BID 4 Days #8 capsule 06/18/22 [Rx] Follow up Appointment(s)/Referral(s): [facility],Clinic [REFERRING] - 1-2 Days Patient Instructions/Handouts: How to Stop Smoking (DC), Community Acquired Pneumonia (DC), Chronic Lung Disease and Infection Prevention (DC) Discharge Disposition: HOME WITH HOME HEALTH SERVICES
[2022-07-01] MEDS ORDERED: PALIPERIDONE IM 156 MG/ML SYG IM SCH (09:00)
== END 2022-06-18 14:36 | disposition home health service (06) ==
LOC: EC 20:35 → 5NMEDONC 23:10 → EEVIPCON 23:10 → 5NMEDONC 06-15 14:24
PROVIDERS: ADMIT Internal Medicine; ATTEND Internal Medicine
DX: J18.9 Pneumonia, unspecified organism (principal); J44.0 Chronic obstructive pulmonary disease with (acute) lower respiratory infection; N17.9 Acute kidney failure, unspecified; D61.818 Other pancytopenia; F20.9 Schizophrenia, unspecified; K21.9 Gastro-esophageal reflux disease without esophagitis; I10 Essential (primary) hypertension; N42.9 Disorder of prostate, unspecified; K75.9 Inflammatory liver disease, unspecified; R23.8 Other skin changes; R32 Unspecified urinary incontinence; F17.200 Nicotine dependence, unspecified, uncomplicated; Z20.822 Contact with and (suspected) exposure to COVID-19; Z79.51 Long term (current) use of inhaled steroids; Z79.899 Other long term (current) drug therapy; Z88.8 Allergy status to other drugs, medicaments and biological substances; Z91.041 Radiographic dye allergy status; Z71.6 Tobacco abuse counseling
CPT/HCPCS: 96376; 96361 ×2; 96365; 96366 ×4; 96367; 96372 ×4; 99285; 36415; 94640 ×6; 93005; 92523; 80053 ×2; 80048 ×2; 82607; 82746; 83540; 83550; 83605; 83735; 84484; 85025 ×3; 85027; 85610; 85730; 81001; 87040; 87635; 71046; G0378 ×5; S0138 ×4; J0456 ×3; J0696 ×4; J1644 ×4

== ENCOUNTER 2022-06-19 12:30 | Inpatient (IN) | payer OTHER, MEDICARE ==
--- NOTE | 2022-06-19 12:53 | ED ---
General Adult HPI - General Stated complaint: ETOH Time Seen by Provider: 06/19/22 12:30 Source: patient, RN notes reviewed, old records reviewed - History of Present Illness Initial comments: This is a 67-year-old male who presents emergency Department after being found down and he told EMS that he had drank half of a fifth. Patient states he didn't think he drank that much for him. Patient denies any drug use. Patient denies any pain. Patient denies chest pain difficulty breathing first breath per patient denies abdominal pain patient denies nausea vomiting. Patient denies any recent fever chills or cough. Patient denies hitting his head. Patient states is just tired. - Related Data Home Medications Medication Instructions Recorded Confirmed Acamprosate Calcium [Campral] 333 mg PO TID 12/06/21 06/19/22 Ascorbic Acid [Vitamin C] 250 mg PO BID 12/06/21 06/19/22 Cholecalciferol [Vitamin D3 (25 50 mcg PO DAILY 12/06/21 06/19/22 Mcg = 1000 Iu)] Ferrous Sulfate [Iron] 325 mg PO DAILY 12/06/21 06/19/22 LORazepam [Ativan] 0.5 mg PO BID 12/06/21 06/19/22 Lurasidone [Latuda] 80 mg PO HS 12/06/21 06/19/22 Tamsulosin HCl [Flomax] 0.8 mg PO DAILY 12/06/21 06/19/22 Thiamine [Vitamin B-1] 100 mg PO DAILY 12/06/21 06/19/22 lisinopriL [Prinivil] 10 mg PO DAILY 12/06/21 06/19/22 traZODone HCL 400 mg PO HS 12/06/21 06/19/22 Albuterol Nebulized [Ventolin 2.5 mg INHALATION RT-Q4H PRN 06/14/22 06/19/22 Nebulized] Albuterol Sulfate [Ventolin HFA] 1 puff INHALATION RT-Q4H PRN 06/14/22 06/19/22 Brimonidine Tartrate [Alphagan P 1 drop BOTH EYES DIRECTED 06/14/22 06/19/22 0.2% Ophth Soln] Finasteride [Proscar] 5 mg PO DAILY 06/14/22 06/19/22 Fluticasone Propion/Salmeterol 1 puff INHALATION RT-BID 06/14/22 06/19/22 [Fluticasone-Salmeterol 250-50] Ibuprofen [Motrin] 800 mg PO TID PRN 06/14/22 06/19/22 Lactose-Reduced Food [Ensure Plus] 1 can PO TID PRN 06/14/22 06/19/22 Lidocaine 5% Patch [Lidoderm 5% 1 patch TOPICAL DAILY PRN 06/14/22 06/19/22 Patch] Multivitamins, Thera [Multivitamin 1 tab PO DAILY 06/14/22 06/19/22 (formulary)] Paliperidone IM [Invega Sustenna] 156 mg IM Q21D 06/14/22 06/19/22 Pantoprazole [Protonix] 40 mg PO BID 06/14/22 06/19/22 Polyvinyl Alcohol/Povidone 1 applic BOTH EYES QID 06/14/22 06/19/22 [Freshkote Eye Drop] Previous Rx's Medication Instructions Recorded Doxycycline [Vibramycin] 100 mg PO BID 4 Days #8 capsule 06/18/22 Allergies Allergy/AdvReac Type Severity Reaction Status Date / Time furosemide [From Lasix] Allergy UNKNOWN Verified 06/19/22 14:32 REACTION Iodinated Contrast Media Allergy UNKNOWN Verified 06/19/22 14:32 REACTION Review of Systems ROS Statement: Those systems with pertinent positive or pertinent negative responses have been documented in the HPI. ROS Other: All systems not noted in ROS Statement are negative. Past Medical History Past Medical History: GERD/Reflux, Hypertension, Prostate Disorder Additional Past Medical History / Comment(s): Hepatitis, History of Any Multi-Drug Resistant Organisms: None Reported Past Surgical History: Unable to Obtain Past Anesthesia/Blood Transfusion Reactions: No Reported Reaction Past Psychological History: Schizophrenia Smoking Status: Current every day smoker Past Alcohol Use History: None Reported Past Drug Use History: None Reported - Past Family History Father History Unknown: Yes Mother History Unknown: Yes General Exam - General Exam Comments Initial Comments: GENERAL: Patient is well-developed and well-nourished. Patient is nontoxic and well- hydrated and is in no acute distress. Patient does seem intoxicated ENT: Neck is soft and supple. No significant lymphadenopathy is noted. Oropharynx is clear. Moist mucous membranes. Neck has full range of motion without eliciting any pain. EYES: The sclera were anicteric and conjunctiva were pink and moist. Extraocular movements were intact and pupils were equal round and reactive to light. Eyelids were unremarkable. PULMONARY: Unlabored respirations. Patient has crackles in the left base CARDIOVASCULAR: There is a regular rate and rhythm without any murmurs gallops or rubs. ABDOMEN: Soft and nontender with normal bowel sounds. SKIN: Skin is clear with no lesions or rashes and otherwise unremarkable. NEUROLOGIC: Patient is alert and oriented 2. Cranial nerves II through XII are grossly intact. Motor and sensory are also intact. Normal speech, volume and content. Symmetrical smile. MUSCULOSKELETAL: Normal extremities with adequate strength and full range of motion. LYMPHATICS: No significant lymphadenopathy is noted PSYCHIATRIC: Normal psychiatric evaluation. Course Vital Signs 06/19/22 06/19/22 06/19/22 12:35 12:45 13:00 Temperature Pulse Rate 58 L Respiratory 17 Rate Blood Pressure 91/46 88/46 O2 Sat by Pulse 97 95 94 L Oximetry 06/19/22 06/19/22 06/19/22 13:04 13:11 13:15 Temperature 98.8 F 98.8 F Pulse Rate 59 L 56 L Respiratory 18 16 Rate Blood Pressure 91/46 82/42 O2 Sat by Pulse 96 97 Oximetry 06/19/22 06/19/22 06/19/22 13:30 13:45 14:00 Temperature Pulse Rate 57 L 60 68 Respiratory 16 19 28 H Rate Blood Pressure 104/56 97/51 113/59 O2 Sat by Pulse 97 95 Oximetry 06/19/22 14:15 Temperature Pulse Rate 67 Respiratory 15 Rate Blood Pressure 124/68 O2 Sat by Pulse 98 Oximetry Procedures - Sepsis Sepsis Focused Exam #1 Time Sepsis Criteria Met: 14:10 Sepsis Focused Exam Date: 06/19/22 Sepsis Focused Exam Time: 15:09 Sepsis Focused Exam Complete: Yes Vital Signs & RN Notes Reviewed: Yes Capillary Refill: < 2 Seconds: Fingers Peripheral Pulses: Normal: Radial (R) Skin Color: Normal for Patient Respiratory Exam: normal lung sounds, rales Cardiovascular Exam: normal rhythm Medical Decision Making - Medical Decision Making EKG as interpreted by myself shows a sinus rhythm at 64 bpm PA interval 171 QRS is 106 QT interval is 456 QTC is [address] segment elevation or depression. Patient's x-ray results showed pneumonia at 2:10 PM patient has received 3 L of normal saline started the antibiotics at this time. Was pt. sent in by a medical professional or institution (NANCY Jackson, ADDICTIONS COUNSELOR ASSISTANT, urgent care, hospital, or group home...) When possible be specific @ -No Did you speak to anyone other than the patient for history (EMS, parent, family, police, friend...)? What history was obtained from this source @ -No Did you review nursing and triage notes (agree or disagree)? Why? @ -I reviewed and agree with nursing and triage notes Were old charts reviewed (outside hosp., previous admission, EMS record, old EKG, old radiological studies, urgent care reports/EKG's, group home records)? Report findings @ -I reviewed prior lab work and charts Differential Diagnosis (chest pain, altered mental status, abdominal pain women, abdominal pain men, vaginal bleeding, weakness, fever, dyspnea, syncope, headache, dizziness, GI bleed, back pain, seizure, CVA, palpatations, mental health, musculoskeletal)? @ -Differential Altered Mental Status: Hypoglycemia, DKA, hypercapnia, ETOH, overdose, CO poisoning, trauma, myxedema coma, HTN encephalopathy, infection, encephalitis, psychosis, intercranial hemorrhage, hepatic encephalopathy, meningitis, CVA, this is not meant to be an all-inclusive list EKG interpreted by me (3pts min.). @ -As above X-rays interpreted by me (1pt min.). @ -Chest x-ray was interpreted by myself. Chest X-ray shows a left lower lobe infiltrate CT interpreted by me (1pt min.). @ -Patient's CT of the brain and C-spine were interpreted by myself I see no acute abnormalities. U/S interpreted by me (1pt. min.). @ -None done What testing was considered but not performed or refused? (CT, X-rays, U/S, labs)? Why? @ -None What meds were considered but not given or refused? Why? @ -None Did you discuss the management of the patient with other professionals (professionals i.e. NANCY Jackson, ADDICTIONS COUNSELOR ASSISTANT, lab, RT, psych nurse, health and social care teacher, contour sander, teacher, liaison officer, nurse case management)? Give summary @ -No Was smoking cessation discussed for >3mins.? @ -No Was critical care preformed (if so, how long)? @ -35 minutes Were there social determinants of health that impacted care today? How? (Homelessness, low income, unemployed, alcoholism, drug addiction, transportation, low edu. Level, literacy, decrease access to med. care, assisted, rehab)? @ -No Was there de-escalation of care discussed even if they declined (Discuss DNR or withdrawal of care, Hospice)? DNR status @ -No What co-morbidities impacted this encounter? (DM, HTN, Smoking, COPD, CAD, Ca ncer, CVA, ARF, Chemo, Hep., AIDS, mental health diagnosis, sleep apnea, morbid obesity)? @ -None Was patient admitted / discharged? Hospital course, mention meds given and route, prescriptions, significant lab abnormalities, going to OR and other pertinent info. @ -Patient initially came in and was slow to respond to questions but accurate and after a few liters of fluid patient was alert and oriented 3. Patient's lactic acid was 4.1 so I gave the patient 3 L of fluid and then he went back in and did a focused physical exam. Patient's x-ray showed pneumonia started the patient antibiotics I spoke with some physicians agreed to admit the patient admitted the patient wrote admitting orders. Undiagnosed new problem with uncertain prognosis? @ -No Drug Therapy requiring intensive monitoring for toxicity (Heparin, Nitro, Insulin, Cardizem)? @ -No Were any procedures done? @ -No Diagnosis/symptom? @ -Sepsis Acute, or Chronic, or Acute on Chronic? @ -Acute Uncomplicated (without systemic symptoms) or Complicated (systemic symptoms)? @ -Complicated Side effects of treatment? @ -No Exacerbation, Progression, or Severe Exacerbation? @ -No Poses a threat to life or bodily function? How? (Chest pain, [place], [place], pneumonia, PE, COPD, DKA, ARF, appy, cholecystitis, CVA, Diverticulitis, Homicidal, Suicidal, threat to staff... and all critical care pts) @ -Yes this could lead to hypoperfusion and end organ dysfunction Diagnosis/symptom? @ -pneumonia Acute, or Chronic, or Acute on Chronic? @ -Acute Uncomplicated (without systemic symptoms) or Complicated (systemic symptoms)? @ -Complicated Side effects of treatment? @ -none Exacerbation, Progression, or Severe Exacerbation] @ -no Poses a threat to life or bodily function? @ -Yes this can lead to sepsis and that appears to have done so - Lab Data Result diagrams: 06/19/22 13:01 06/19/22 13:01 Lab Results 06/19/22 06/19/22 06/19/22 Range/Units 13:01 13:01 13:01 WBC 1.2 L* (3.8-10.6) k/uL RBC 3.32 L (4.30-5.90) m/uL Hgb 10.8 L (13.0-17.5) gm/dL Hct 31.7 L (39.0-53.0) % MCV 95.4 (80.0-100.0) fL MCH 32.7 (25.0-35.0) pg MCHC 34.3 (31.0-37.0) g/dL RDW 13.4 (11.5-15.5) % Plt Count 47 L (150-450) k/uL MPV 9.8 Neutrophils % 74 % Lymphocytes % 15 % Monocytes % 6 % Eosinophils % 3 % Basophils % 0 % Neutrophils # 0.9 L (1.3-7.7) k/uL Lymphocytes # 0.2 L (1.0-4.8) k/uL Monocytes # 0.1 (0-1.0) k/uL Eosinophils # 0.0 (0-0.7) k/uL Basophils # 0.0 (0-0.2) k/uL Manual Slide Review Performed RBC Morphology Normal Sodium 144 (137-145) mmol/L Potassium 3.7 (3.5-5.1) mmol/L Chloride 115 H (98-107) mmol/L Carbon Dioxide 18 L (22-30) mmol/L Anion Gap 11 mmol/L BUN 22 H (9-20) mg/dL Creatinine 1.09 (0.66-1.25) mg/dL Est GFR (CKD-EPI)AfAm 80 (>60 ml/min/1.73 sqM) Est GFR (CKD-EPI)NonAf 69 (>60 ml/min/1.73 sqM) Glucose 107 H (74-99) mg/dL Lactic Ac Sepsis Rflx Plasma Lactic Acid Andrew 4.1 H* (0.7-2.0) mmol/L Calcium 7.8 L (8.4-10.2) mg/dL Magnesium 1.6 (1.6-2.3) mg/dL Total Bilirubin 0.4 (0.2-1.3) mg/dL AST 37 (17-59) U/L ALT 39 (4-49) U/L Alkaline Phosphatase 73 (38-126) U/L Total Protein 5.1 L (6.3-8.2) g/dL Albumin 3.0 L (3.5-5.0) g/dL Serum Alcohol 39 mg/dL Influenza Type A (PCR) (Not Detectd) Influenza Type B (PCR) (Not Detectd) RSV (PCR) (Not Detectd) SARS-CoV-2 (PCR) (Not Detectd) 06/19/22 06/19/22 Range/Units 13:26 14:52 WBC (3.8-10.6) k/uL RBC (4.30-5.90) m/uL Hgb (13.0-17.5) gm/dL Hct (39.0-53.0) % MCV (80.0-100.0) fL MCH (25.0-35.0) pg MCHC (31.0-37.0) g/dL RDW (11.5-15.5) % Plt Count (150-450) k/uL MPV Neutrophils % % Lymphocytes % % Monocytes % % Eosinophils % % Basophils % % Neutrophils # (1.3-7.7) k/uL Lymphocytes # (1.0-4.8) k/uL Monocytes # (0-1.0) k/uL Eosinophils # (0-0.7) k/uL Basophils # (0-0.2) k/uL Manual Slide Review RBC Morphology Sodium (137-145) mmol/L Potassium (3.5-5.1) mmol/L Chloride (98-107) mmol/L Carbon Dioxide (22-30) mmol/L Anion Gap mmol/L BUN (9-20) mg/dL Creatinine (0.66-1.25) mg/dL Est GFR (CKD-EPI)AfAm (>60 ml/min/1.73 sqM) Est GFR (CKD-EPI)NonAf (>60 ml/min/1.73 sqM) Glucose (74-99) mg/dL Lactic Ac Sepsis Rflx Y Plasma Lactic Acid Andrew (0.7-2.0) mmol/L Calcium (8.4-10.2) mg/dL Magnesium (1.6-2.3) mg/dL Total Bilirubin (0.2-1.3) mg/dL AST (17-59) U/L ALT (4-49) U/L Alkaline Phosphatase (38-126) U/L Total Protein (6.3-8.2) g/dL Albumin (3.5-5.0) g/dL Serum Alcohol mg/dL Influenza Type A (PCR) Not Detected (Not Detectd) Influenza Type B (PCR) Not Detected (Not Detectd) RSV (PCR) Not Detected (Not Detectd) SARS-CoV-2 (PCR) Not Detected (Not Detectd) Critical Care Time Critical Care Time: Yes Total Critical Care Time: 35 Disposition Clinical Impression: Pneumonia, Alcohol abuse, Sepsis Disposition: ADMITTED IP TO THIS HOSP Referrals: None,Stated [Primary Care Provider] - 1-2 days Time of Disposition: 15:39
[2022-06-19 13:20] LABS: Basophils % (A) 0 %; Eosinophils % (A) 3 %; HCT 31.7 % (39.0-53.0); HGB 10.8 gm/dL (13.0-17.5); Lymphocytes # (A) 0.2 k/uL (1.0-4.8); Lymphocytes % (A) 15 %; MCH 32.7 pg (25.0-35.0); MCHC 34.3 g/dL (31.0-37.0); MCV 95.4 fL (80.0-100.0); Mean Platelet Volume 9.8; Monocytes # (A) 0.1 k/uL (0-1.0); Monocytes % (A) 6 %; Neutrophils # (A) 0.9 k/uL (1.3-7.7); Neutrophils % (A) 74 %; RBC 3.32 m/uL (4.30-5.90); RDW 13.4 % (11.5-15.5)
[2022-06-19 13:25] LABS: Calcium 7.8 mg/dL (8.4-10.2); Magnesium 1.6 mg/dL (1.6-2.3); Potassium 3.7 mmol/L (3.5-5.1); Total Bilirubin 0.4 mg/dL (0.2-1.3); Total Protein 5.1 g/dL (6.3-8.2)
[2022-06-19] MEDS ORDERED: SODIUM CHLORIDE 0.9% 1,000 ML IV ONE (13:29)
--- NOTE | 2022-06-19 13:34 | XR ---
EXAMINATION TYPE: XR chest 2V DATE OF EXAM: 06/19/2022 COMPARISON: 06/14/2022 HISTORY: Weakness TECHNIQUE: Frontal and lateral views of the chest are obtained. FINDINGS: There is subtle increase in the left lower lobe infiltrate and probable small left pleural effusion.. Findings most consistent with pneumonia. The heart size normal and the pulmonary vasculature is not congested. There is no pneumothorax. There are postsurgical changes involving the right humerus. IMPRESSION: Findings consistent with an acute cardiopulmonary process involving the left lower lobe which appear s slightly worsened compared to the prior study.
[2022-06-19] MEDS ORDERED: IPRATROPIUM-ALBUTEROL 3 ML NEB INHALATION STA (13:45)
[2022-06-19] MEDS ORDERED: cefTRIAXone IN SWFI 1,000 MG/10 ML SYRINGE IVP STA (14:10)
[2022-06-19 14:32] LABS: WBC 1.2 k/uL (3.8-10.6)
[2022-06-19 14:51] LABS: RBC Morphology Normal
[2022-06-19 14:52] LABS: Platelet Count 47 k/uL (150-450)
--- NOTE | 2022-06-19 15:21 | CT ---
EXAMINATION TYPE: CT brain grace garcia con DATE OF EXAM: 06/19/2022 COMPARISON: None HISTORY: ETOH, fall, LOC, confusion CT DLP: 1480.[address] of the brain was performed. The ventricles, basal cisterns and sulci overlying the cerebral convexities demonstrate mild enlargem ent. There is no evidence for intracranial hemorrhage or sulcal effacement. There is decreased attenuatio n about the periventricular white matter and deep white matter of both cerebral hemispheres, compatib le with chronic small vessel ischemia. No mass effects are seen. If symptoms persist consider MRI. Osseous calvarium is intact. IMPRESSION: 1. Age related atrophic and chronic small vessel ischemic change without acute intracranial process seen at this time. CT Cervical Spine: Unenhanced CT of the cervical spine was performed with bone and soft tissue window settings submitted . Coronal and sagittal reconstruction is obtained. There is normal alignment and prevertebral soft tissues. No evidence for acute cervical fracture . Scattered degenerative disc disease and spondylosis. Biapical scarring. IMPRESSION: 1. No evidence for acute fracture or subluxation of the cervical spine.
[2022-06-19] MEDS ORDERED: PNEUMONIA PROTOCOL UTILIZED 1 EACH MISC PO PRN (15:43)
[2022-06-19] MEDS ORDERED: AZITHROMYCIN 500 MG in SODIUM CHLORIDE 0.9% 250 ML IVPB STA (15:45)
[2022-06-19] MEDS ORDERED: ALBUTEROL NEBULIZED 2.5 MG/3 ML INHALATION PRN (15:46)
[2022-06-19] MEDS ORDERED: IPRATROPIUM 0.5 MG/2.5 ML NEBU INHALATION PRN (15:48)
[2022-06-19] MEDS: MAGNESIUM SULFATE-D5W PMX 1 GM in DEXTROSE/WATER 1 100ML.BAG IVPB SCH ×2 (17:48→18:10)
[2022-06-19] MEDS ORDERED: AZITHROMYCIN 500 MG in SODIUM CHLORIDE 0.9% 250 ML IVPB ONE (18:00)
[2022-06-19] MEDS ORDERED: THIAMINE 100 MG/ML 2 ML VIAL IM STA (18:25)
--- NOTE | 2022-06-19 18:42 | P.HPIM ---
History of Present Illness H&P Date: 06/19/22 History of Presenting Illness: Patient is a very pleasant 67-year-old male with a past medical history of hypertension, prostate disorder, hepatitis, schizophrenia, COPD with continued nicotine dependence, and GERD. He was recently discharged after a three-day hospitalization for atypical pneumonia and discharged home on doxycycline 2 mg twice daily. Patient reports after he was discharged yesterday he began drinking a fifth of whiskey to celebrate his birthday today. Patient reports he was done drinking has alcohol by 2 AM and went to bed and upon awakening he decided he was hungry and would walk up to the gas station to get a pizza. Patient reports that he tripped and fell and the gas station employees called the ambulance and told them he was drinking again so EMS came and brought him to the hospital. Patient currently denies having any headache, lightheadedness, dizziness, chest pain, palpitations, shortness of breath, cough or congestion, nausea, vomiting, abdominal pain, or experiencing any numbness/tingling/weakness/pain in his extremities. Patient states he just wanted to celebrate his birthday. Upon arrival to the emergency department patient underwent full evaluation. CBC consistent with previously known pancytopenia with WBC count of 1.2, hemoglobin of 10.8, and platelet count of 47. BMP revealing mild prerenal azotemia with BUN of 22 and normal creatinine of 1.09 and GFR of 69. Patient's glucose was 107. Initial lactic acid was elevated at 4.1 and patient received 2 L 0.9% normal saline with repeat lactate of 0.9. Serum alcohol level was 39. Influenza, RSV, and Covid PCR as well negative. EKG showing normal sinus rhythm at 64 bpm upon personal review and interpretation. CT head and cervical spine was completed and radiology report reviewed stating no evidence for acute fracture or subluxation of the cervical spine and age related atrophic and chronic small vessel ischemic changes without acute intercranial process. Chest x-ray reviewed showing no significant change upon personal review and interpretation when compared to chest x-ray completed on 06/14/22. ED physician started patient back on Rocephin and azithromycin. Discussed plan of care in detail with the ED physician. Patient being admitted under our services to general medical unit under our services at this time. Review of systems: Pertinent positives and negatives as discussed in HPI, a complete review of systems was performed and all other systems are negative. Physical exam: Vital signs reviewed and stable. General: Nontoxic, no distress and appears stated age. Derm: Skin warm and dry, normal coloration for ethnicity. Head: Atraumatic, normocephalic and symmetric. Eyes: EOMs intact, no lid lag, and anicteric sclera Mouth: no lip lesions, mucus membranes moist Cardiovascular: regular rate and rhythm with normal S1S2, no murmur, positive posterior tibial pulses bilaterally, and cap refill < 2 seconds. Lungs: Respirations even, regular, and unlabored on room air. Lungs CTA bilaterally, no rhonchi, no rales, no wheezing, and no accessory muscle usage. Abdominal: soft, nontender to palpation, no guarding, no appreciable organomegaly Ext: ROM intact. No gross muscle atrophy, no edema, no contractures Neuro: Speech clear, face symmetrical and CN II-XII grossly intact with no noted focal neuro deficits Psych: Alert and oriented to person, place, time, and situation. Appropriate and pleasant affect. Assessment and Plan of Care: Alcohol intoxication and withdrawal Alcoholic lactic acidosis -Initial lactate was elevated at 4.1 and after 2 L bolus of 0.9% normal saline repeat lactate 0.9. -Serum alcohol level was 39. -Seizure, fall, aspiration, and elopement precautions in place. -Volatile panel -Urine drug screen -Continued close monitoring of electrolytes and replace as needed. -Telemetry monitoring. Atypical pneumonia -Chest x-ray reviewed showing no significant change upon personal review and interpretation when compared to chest x-ray completed on 06/14/22. -Influenza, RSV, and Covid PCR as well negative. -Continue azithromycin 500 mg IVPB every 24 hours along with Rocephin 2 g IVPB every 24 hours. -Order placed for pro-calcitonin. -Order placed for sputum culture -Order placed for Legionella antigen and culture. -Follow up on blood cultures. Pancytopenia -Pancytopenia appears to be chronic and is noted with labs dating back to 12/06/21 upon chart review. Schizophrenia -Continue medication regimen with Latuda, Invega, and trazodone. Laboratory findings: Labs completed and reviewed. CBC consistent with previously known pancytopenia with WBC count of 1.2, hemoglobin of 10.8, and platelet count of 47. BMP revealing mild prerenal azotemia with BUN of 22 and normal creatinine of 1.09 and GFR of 69. Patient's glucose was 107. Initial lactic acid was elevated at 4.1 and patient received 2 L 0.9% normal saline with repeat lactate of 0.9. Serum alcohol level was 39. Influenza, RSV, and Covid PCR as well negative. Imaging results: -EKG showing normal sinus rhythm at 64 bpm upon personal review and interpretation. -CT head and cervical spine was completed and radiology report reviewed stating no evidence for acute fracture or subluxation of the cervical spine and age related atrophic and chronic small vessel ischemic changes without acute intercranial process. -Chest x-ray reviewed showing no significant change upon personal review and interpretation when compared to chest x-ray completed on 06/14/22. ED physician started patient back on Rocephin and azithromycin. Discussed plan of care in detail with the ED physician. Patient being admitted under our services to general medical unit under our services at this time. CODE STATUS: Full code DVT prophylaxis: SCDs Discussed with: Patient, RN, in ED physician Anticipated discharge date: Clinical course to determine Anticipated discharge place: Home Patient was seen independently by Nurse Practitioner. This document was prepared using [employer] dictation software. Please allow for errors in hydrogenation operator while rare they do occur. Nico Rodriguez NP rendered care for this patient independently, reviewed the findings and plan as documented in the note above. I did not physically speak with or examine the patient on this date. Past Medical History Past Medical History: GERD/Reflux, Hypertension, Prostate Disorder Additional Past Medical History / Comment(s): Hepatitis, History of Any Multi-Drug Resistant Organisms: None Reported Past Surgical History: Unable to Obtain Past Anesthesia/Blood Transfusion Reactions: No Reported Reaction Past Psychological History: Schizophrenia Additional Psychological History / Comment(s): Pt denies this he states, "That's a lable they put on me so they could get my money that's all." Smoking Status: Current every day smoker Past Alcohol Use History: None Reported Past Drug Use History: None Reported - Past Family History Father History Unknown: Yes Mother History Unknown: Yes Medications and Allergies Home Medications Medication Instructions Recorded Confirmed Type Acamprosate Calcium [Campral] 333 mg PO TID 12/06/21 06/19/22 History Ascorbic Acid [Vitamin C] 250 mg PO BID 12/06/21 06/19/22 History Cholecalciferol [Vitamin D3 (25 50 mcg PO DAILY 12/06/21 06/19/22 History Mcg = 1000 Iu)] Ferrous Sulfate [Iron] 325 mg PO DAILY 12/06/21 06/19/22 History LORazepam [Ativan] 0.5 mg PO BID 12/06/21 06/19/22 History Lurasidone [Latuda] 80 mg PO HS 12/06/21 06/19/22 History Tamsulosin HCl [Flomax] 0.8 mg PO DAILY 12/06/21 06/19/22 History Thiamine [Vitamin B-1] 100 mg PO DAILY 12/06/21 06/19/22 History lisinopriL [Prinivil] 10 mg PO DAILY 12/06/21 06/19/22 History traZODone HCL 400 mg PO HS 12/06/21 06/19/22 History Albuterol Nebulized [Ventolin 2.5 mg INHALATION RT-Q4H PRN 06/14/22 06/19/22 History Nebulized] Albuterol Sulfate [Ventolin HFA] 1 puff INHALATION RT-Q4H PRN 06/14/22 06/19/22 History Brimonidine Tartrate [Alphagan P 1 drop BOTH EYES DIRECTED 06/14/22 06/19/22 History 0.2% Ophth Soln] Finasteride [Proscar] 5 mg PO DAILY 06/14/22 06/19/22 History Fluticasone Propion/Salmeterol 1 puff INHALATION RT-BID 06/14/22 06/19/22 History [Fluticasone-Salmeterol 250-50] Ibuprofen [Motrin] 800 mg PO TID PRN 06/14/22 06/19/22 History Lactose-Reduced Food [Ensure Plus] 1 can PO TID PRN 06/14/22 06/19/22 History Lidocaine 5% Patch [Lidoderm 5% 1 patch TOPICAL DAILY PRN 06/14/22 06/19/22 History Patch] Multivitamins, Thera [Multivitamin 1 tab PO DAILY 06/14/22 06/19/22 History (formulary)] Paliperidone IM [Invega Sustenna] 156 mg IM Q21D 06/14/22 06/19/22 History Pantoprazole [Protonix] 40 mg PO BID 06/14/22 06/19/22 History Polyvinyl Alcohol/Povidone 1 applic BOTH EYES QID 06/14/22 06/19/22 History [Freshkote Eye Drop] Doxycycline [Vibramycin] 100 mg PO BID 4 Days #8 capsule 06/18/22 06/19/22 Rx Allergies Allergy/AdvReac Type Severity Reaction Status Date / Time furosemide [From Lasix] Allergy UNKNOWN Verified 06/19/22 14:32 REACTION Iodinated Contrast Media Allergy UNKNOWN Verified 06/19/22 14:32 REACTION Physical Exam Osteopathic Statement: *. No significant issues noted on an osteopathic structural exam other than those noted in the History and Physical/Consult. Vitals: Vital Signs Temp Pulse Pulse Resp BP BP Pulse Ox 06/19/22 17:52 100.5 F H 70 15 156/72 97 06/19/22 16:45 74 13 149/73 06/19/22 16:30 71 17 147/75 06/19/22 16:15 75 8 L 144/83 06/19/22 16:00 75 16 141/74 99 06/19/22 15:45 98.7 F 69 11 L 139/72 100 06/19/22 15:30 70 9 L 137/71 98 06/19/22 15:15 61 9 L 99 06/19/22 15:00 134/78 06/19/22 14:45 64 17 135/69 99 06/19/22 14:30 68 21 131/73 97 06/19/22 14:15 67 15 124/68 98 06/19/22 14:00 68 28 H 113/59 95 06/19/22 13:45 60 19 97/51 97 06/19/22 13:30 57 L 16 104/56 06/19/22 13:15 98.8 F 56 L 16 82/42 97 06/19/22 13:11 98.8 F 06/19/22 13:04 59 L 18 91/46 96 06/19/22 13:00 58 L 17 88/46 94 L 06/19/22 12:45 91/46 95 06/19/22 12:35 97 Intake and Output 06/19/22 06/19/22 06/19/22 06:59 14:59 22:59 Other: Weight 90.718 kg 90.718 kg Results CBC & Chem 7: 06/19/22 13:01 06/19/22 13:01 Labs: Abnormal Lab Results - Last 24 Hours (Table) 06/19/22 06/19/22 06/19/22 Range/Units 13:01 13: 13:01 WBC 1.2 L* (3.8-10.6) k/uL RBC 3.32 L (4.30-5.90) m/uL Hgb 10.8 L (13.0-17.5) gm/dL Hct 31.7 L (39.0-53.0) % Plt Count 47 L (150-450) k/uL Neutrophils # 0.9 L (1.3-7.7) k/uL Lymphocytes # 0.2 L (1.0-4.8) k/uL Chloride 115 H (98-107) mmol/L Carbon Dioxide 18 L (22-30) mmol/L BUN 22 H (9-20) mg/dL Glucose 107 H (74-99) mg/dL Plasma Lactic Acid Andrew 4.1 H* (0.7-2.0) mmol/L Calcium 7.8 L (8.4-10.2) mg/dL Total Protein 5.1 L (6.3-8.2) g/dL Albumin 3.0 L (3.5-5.0) g/dL Thrombosis Risk Factor Assmnt - Choose All That Apply Any of the Below Risk Factors Present?: No
[2022-06-19] MEDS: SODIUM CHLORIDE 0.9% 1,000 ML IV SCH (22:04)
[2022-06-19 23:22] LABS: Urine Alcohol Positive (Negative); Urine Barbiturate Negative (Negative); Urine Cocaine Negative (Negative); Urine Methadone Negative (Negative); Urine Opiates Negative (Negative); Urine Phencyclidine Negative (Negative)
[2022-06-20] MEDS: SODIUM CHLORIDE 0.9% 1,000 ML IV SCH ×2 (05:46→15:22)
--- NOTE | 2022-06-20 07:14 | XR ---
EXAMINATION TYPE: XR chest 2V DATE OF EXAM: 06/20/2022 COMPARISON: 06/19/2022 HISTORY: Follow-up pneumonia TECHNIQUE: Frontal and lateral views of the chest are obtained. FINDINGS: There is marked improvement in aeration in the left lung base compared to previous. Findings indicate resolving pneumonia or resolved atelectasis due to improved inspiration compared to previous. The right lung is clear. There is no pleural effusion or pneumothorax. Heart size is normal. The osseous structures are intact with the exception of the postsurgical changes in the right humerus. IMPRESSION: No acute cardiopulmonary process.
[2022-06-20] MEDS: THIAMINE 100 MG TAB PO SCH (10:02)
[2022-06-20] MEDS: MULTIVITAMINS, THERA 1 EACH TAB PO SCH (10:02)
[2022-06-20] MEDS: FOLIC ACID 1 MG TAB PO SCH (10:02)
--- NOTE | 2022-06-20 14:54 | P.PN ---
Subjective Progress Note Date: 06/20/22 Hospital course: Patient is a very pleasant 67-year-old male with a past medical history of hypertension, prostate disorder, hepatitis, schizophrenia, COPD with continued nicotine dependence, and GERD. He was recently discharged after a three-day hospitalization for atypical pneumonia and discharged home on doxycycline 2 mg twice daily. Patient reports after he was discharged yesterday he began drinking a fifth of whiskey to celebrate his birthday today. Patient reports he was done drinking has alcohol by 2 AM and went to bed and upon awakening he decided he was hungry and would walk up to the gas station to get a pizza. Patient reports that he tripped and fell and the gas station employees called the ambulance and told them he was drinking again so EMS came and brought him to the hospital. Patient currently denies having any headache, lightheadedness, dizziness, chest pain, palpitations, shortness of breath, cough or congestion, nausea, vomiting, abdominal pain, or experiencing any numbness/tingling/weakness/pain in his extremities. Patient states he just wanted to celebrate his birthday. Upon arrival to the emergency department patient underwent full evaluation. CBC consistent with previously known pancytopenia with WBC count of 1.2, hemoglobin of 10.8, and platelet count of 47. BMP revealing mild prerenal azotemia with BUN of 22 and normal creatinine of 1.09 and GFR of 69. Patient's glucose was 107. Initial lactic acid was el evated at 4.1 and patient received 2 L 0.9% normal saline with repeat lactate of 0.9. Serum alcohol level was 39. Influenza, RSV, and Covid PCR as well negative. EKG showing normal sinus rhythm at 64 bpm upon personal review and interpretation. CT head and cervical spine was completed and radiology report reviewed stating no evidence for acute fracture or subluxation of the cervical spine and age related atrophic and chronic small vessel ischemic changes without acute intercranial process. Chest x-ray reviewed showing no significant change upon personal review and interpretation when compared to chest x-ray completed on 06/14/22. ED physician started patient back on Rocephin and azithromycin. Discussed plan of care in detail with the ED physician. Patient being admitted under our services to general medical unit under our services at this time. Physical exam: Vital signs reviewed and stable. General: Nontoxic, no distress and appears stated age. Derm: Skin warm and dry, normal coloration for ethnicity. Head: Atraumatic, normocephalic and symmetric. Eyes: EOMs intact, no lid lag, and anicteric sclera Mouth: no lip lesions, mucus membranes moist Cardiovascular: regular rate and rhythm with normal S1S2, no murmur, positive posterior tibial pulses bilaterally, and cap refill < 2 seconds. Lungs: Respirations even, regular, and unlabored on room air. Lungs CTA bilaterally, no rhonchi, no rales, no wheezing, and no accessory muscle usage. Abdominal: soft, nontender to palpation, no guarding, no appreciable organomegaly Ext: ROM intact. No gross muscle atrophy, no edema, no contractures Neuro: Speech clear, face symmetrical and CN II-XII grossly intact with no noted focal neuro deficits Psych: Alert and oriented to person, place, time, and situation. Appropriate and pleasant affect. Assessment and Plan of Care: Alcohol intoxication and withdrawal Alcoholic lactic acidosis Amphetamine use/abuse -Initial lactate was elevated at 4.1 and after 2 L bolus of 0.9% normal saline repeat lactate 0.9. -Serum alcohol level was 39. -Urine drug screen has resulted and upon review is positive for amphetamines which are not prescribed to patient along with urine alcohol -Seizure, fall, aspiration, and elopement precautions -Continued close monitoring of electrolytes and replace as needed. -Telemetry monitoring. Atypical pneumonia, completed treatment. -Chest x-ray reviewed showing no significant change upon personal review and interpretation when compared to chest x-ray completed on 06/14/22. -Influenza, RSV, and Covid PCR as well negative. -Continue azithromycin 500 mg IVPB every 24 hours along with Rocephin 2 g IVPB every 24 hours pending pro-calcitonin results, if negative will discontinue antibiotics . -Pro-calcitonin received and currently pending results. -Sputum culture to be obtained -Legionella antigen and culture to be completed . -Follow up on blood cultures. Pancytopenia -Pancytopenia appears to be chronic and is noted with labs dating back to 12/06/21 upon chart review. Schizophrenia -Continue medication regimen with Latuda, Invega, and trazodone. Discussed plan of care in detail with the ED physician. Patient being admitted under our services to general medical unit under our services at this time. CODE STATUS: Full code DVT prophylaxis: SCDs Discussed with: Patient, RN, in ED physician Anticipated discharge date: Clinical course to determine Anticipated discharge place: Home Patient was seen independently by Nurse Practitioner. This document was prepared using [employer] dictation software. Please allow for errors in internal communications intern while rare they do occur. Nico Rodriguez WOOD DIE MAKER rendered care for this patient independently, reviewed the findings and plan as documented in the note above. I did not physically speak with or examine the patient on this date. procal is now and is negative, stop abx Objective - Vital Signs Vital signs: Vital Signs Temp 98.4 F 06/20/22 01:19 Pulse 57 L 06/20/22 08:10 Resp 16 06/20/22 08:10 BP 138/76 06/20/22 01:19 Pulse Ox 97 06/20/22 08:48 FiO2 Intake & Output 06/19/22 06/20/22 06/20/22 18:59 06:59 18:59 Intake Total 240 1200 Output Total 200 Balance 40 1200 Weight 90.718 kg Intake: Intake, IV Titration 1200 Amount Sodium Chloride 0.9% 1, 1200 000 ml @ 100 mls/hr IV . Q10H [id number] Rx#:[id number] Oral 240 Output: Urine 200 Other: Voiding Method Incontinent Incontinent # Voids 5 2 - Labs CBC & Chem 7: 06/19/22 13:01 06/19/22 13:01 Labs: Abnormal Lab Results - Last 24 Hours (Table) 06/19/22 06/19/22 06/19/22 Range/Units 13:01 13:01 13:01 WBC 1.2 L* (3.8-10.6) k/uL RBC 3.32 L (4.30-5.90) m/uL Hgb 10.8 L (13.0-17.5) gm/dL Hct 31.7 L (39.0-53.0) % Plt Count 47 L (150-450) k/uL Neutrophils # 0.9 L (1.3-7.7) k/uL Lymphocytes # 0.2 L (1.0-4.8) k/uL Chloride 115 H (98-107) mmol/L Carbon Dioxide 18 L (22-30) mmol/L BUN 22 H (9-20) mg/dL Glucose 107 H (74-99) mg/dL Plasma Lactic Acid Andrew 4.1 H* (0.7-2.0) mmol/L Calcium 7.8 L (8.4-10.2) mg/dL Total Protein 5.1 L (6.3-8.2) g/dL Albumin 3.0 L (3.5-5.0) g/dL Ur Amphetamine Screen (Negative) Urine Alcohol (Negative) 06/19/22 Range/Units 17:17 WBC (3.8-10.6) k/uL RBC (4.30-5.90) m/uL Hgb (13.0-17.5) gm/dL Hct (39.0-53.0) % Plt Count (150-450) k/uL Neutrophils # (1.3-7.7) k/uL Lymphocytes # (1.0-4.8) k/uL Chloride (98-107) mmol/L Carbon Dioxide (22-30) mmol/L BUN (9-20) mg/dL Glucose (74-99) mg/dL Plasma Lactic Acid Andrew (0.7-2.0) mmol/L Calcium (8.4-10.2) mg/dL Total Protein (6.3-8.2) g/dL Albumin (3.5-5.0) g/dL Ur Amphetamine Screen Positive A (Negative) Urine Alcohol Positive A (Negative)
[2022-06-20] MEDS: TAMSULOSIN 0.4 MG CAP.ER.24H PO SCH (15:21)
[2022-06-20] MEDS: FINASTERIDE 5 MG TAB PO SCH (15:22)
[2022-06-20] MEDS: ACAMPROSATE CALCIUM 333 MG TABLET.DR PO SCH ×2 (15:24→21:11)
[2022-06-20] MEDS: lisinopriL 10 MG TAB PO SCH (15:24)
[2022-06-20] MEDS ORDERED: AZITHROMYCIN 500 MG in SODIUM CHLORIDE 0.9% 250 ML IVPB SCH (16:00)
[2022-06-20] MEDS: ARTIFICIAL TEARS-HYPROMELLOSE DROPS 15 ML BTL BOTH EYES SCH ×2 (16:50→21:11)
[2022-06-20] MEDS: PANTOPRAZOLE 40 MG TABLET PO SCH (16:50)
[2022-06-20] MEDS: SYMBICORT 80-4.5 MCG INHALER INHALATION SCH (20:08)
[2022-06-20] MEDS: LORazepam 0.5 MG TAB PO SCH (20:27)
[2022-06-20] MEDS ORDERED: traZODone HCL 100 MG TAB PO SCH (21:00)
[2022-06-20] MEDS ORDERED: LURASIDONE 80 MG TAB PO SCH (21:00)
[2022-06-21] MEDS: SODIUM CHLORIDE 0.9% 1,000 ML IV SCH ×2 (03:44→09:49)
[2022-06-21 08:20] VITALS: TEMP 98.4
[2022-06-21] MEDS: SYMBICORT 80-4.5 MCG INHALER INHALATION SCH (08:24)
[2022-06-21] MEDS ORDERED: MULTIVITAMINS, THERA 1 EACH TAB PO SCH (09:00)
[2022-06-21] MEDS ORDERED: THIAMINE 100 MG TAB PO SCH (09:00)
[2022-06-21] MEDS: FOLIC ACID 1 MG TAB PO SCH (09:47)
[2022-06-21] MEDS: lisinopriL 10 MG TAB PO SCH (09:47)
[2022-06-21] MEDS: MULTIVITAMINS, THERA 1 EACH TAB PO SCH (09:47)
[2022-06-21] MEDS: TAMSULOSIN 0.4 MG CAP.ER.24H PO SCH (09:47)
[2022-06-21] MEDS: PANTOPRAZOLE 40 MG TABLET PO SCH (09:47)
[2022-06-21] MEDS: ACAMPROSATE CALCIUM 333 MG TABLET.DR PO SCH (09:47)
[2022-06-21] MEDS: ARTIFICIAL TEARS-HYPROMELLOSE DROPS 15 ML BTL BOTH EYES SCH (09:48)
[2022-06-21] MEDS: FINASTERIDE 5 MG TAB PO SCH (09:48)
[2022-06-21] MEDS: LORazepam 0.5 MG TAB PO SCH (09:48)
[2022-06-21] MEDS: THIAMINE 100 MG TAB PO SCH (10:11)
[2022-06-21 10:58] LABS: African American GFR (CKD) 91.8 (60.0-200.0); Albumin 3.1 g/dL (3.8-4.9); Albumin/Globulin Ratio 2.01 (1.60-3.17); Anion Gap 9.2 mmol/L (10.00-18.00); BUN/Creat Ratio 20.29 Ratio (12.00-20.00); Blood Urea Nitrogen 19.7 mg/dL (9.0-27.0); Calcium 7.8 mg/dL (8.7-10.3); Carbon Dioxide 22.9 mmol/L (20.0-27.5); Globulin 1.6 g/dL (1.6-3.3); Magnesium 1.9 mg/dL (1.5-2.4); Non-African American GFR(CKD) 79.2 (60.0-200.0); Potassium 3.7 mmol/L (3.5-5.5); Total Bilirubin 0.3 mg/dL (0.30-1.20); Total Protein 4.7 g/dL (6.2-8.2)
--- NOTE | 2022-06-21 11:12 | P.DS ---
Providers Date of admission: 06/19/22 15:46 Expected date of discharge: 06/21/22 Attending physician: Noah Hernandez MD Primary care physician: Stated None Hospital Course: Discharge Diagnosis: Alcohol intoxication and withdrawal. Patient is clinically sober. Stable for discharge home. Patient advised against any and all alcohol use. Alcoholic lactic acidosis Questionable Amphetamine use, urine drug screen positive for amphetamines. However patient is on trazodone which can result in false positive urinalysis. Atypical pneumonia, completed treatment. Pro-calcitonin negative. Pancytopenia, chronic. Pancytopenia appears to be chronic and is noted with labs dating back to 12/06/21 upon chart review. Schizophrenia. Continue medication regimen with Latuda, Invega, and trazodone. Hospital Course: Patient is a very pleasant 67-year-old male with a past medical history of hypertension, prostate disorder, hepatitis, schizophrenia, COPD with continued nicotine dependence, and GERD. He was recently discharged after a three-day hospitalization for atypical pneumonia and discharged home on doxycycline 2 mg twice daily. Patient reports after he was discharged yesterday he began drinking a fifth of whiskey to celebrate his birthday today. Patient reports he was done drinking has alcohol by 2 AM and went to bed and upon awakening he decided he was hungry and would walk up to the gas station to get a pizza. Patient reports that he tripped and fell and the gas station employees called the ambulance and told them he was drinking again so EMS came and brought him to the hospital. Patient currently denies having any headache, lightheadedness, dizziness, chest pain, palpitations, shortness of breath, cough or congestion, nausea, vomiting, abdominal pain, or experiencing any numbness/tingling/weakness/pain in his extremities. Patient states he just wanted to celebrate his birthday. Upon arrival to the emergency department patient underwent full evaluation. CBC consistent with previously known pancytopenia with WBC count of 1.2, hemoglobin of 10.8, and platelet count of 47. BMP revealing mild prerenal azotemia with BUN of 22 and normal creatinine of 1.09 and GFR of 69. Patient's glucose was 107. Initial lactic acid was elevated at 4.1 and patient received 2 L 0.9% normal saline with repeat lactate of 0.9. Serum alcohol level was 39. Influenza, RSV, and Covid PCR as well negative. EKG showing normal sinus rhythm at 64 bpm upon personal review and interpretation. CT head and cervical spine was completed and radiology report reviewed stating no evidence for acute fracture or subluxation of the cervical spine and age related atrophic and chronic small vessel ischemic changes without acute intercranial process. Chest x-ray reviewed showing no significant change upon personal review and interpretation when compared to chest x-ray completed on 06/14/22. ED physician started patient back on Rocephin and azithromycin. Discussed plan of care in detail with the ED physician. Patient being admitted under our services to general medical unit under our services at this time. Patient became clinically sober. He was determined stable for discharge home. His guardian will arrange follow-up with his primary cna caregiver. Physical exam: Vital signs reviewed and stable. General: Nontoxic, no distress and appears stated age. Derm: Skin warm and dry, normal coloration for ethnicity. Head: Atraumatic, normocephalic and symmetric. Eyes: EOMs intact, no lid lag, and anicteric sclera Mouth: no lip lesions, mucus membranes moist Cardiovascular: regular rate and rhythm with normal S1S2, no murmur, positive posterior tibial pulses bilaterally, and cap refill < 2 seconds. Lungs: Respirations even, regular, and unlabored on room air. Lungs CTA bilaterally, no rhonchi, no rales, no wheezing, and no accessory muscle usage. Abdominal: soft, nontender to palpation, no guarding, no appreciable organomegaly Ext: ROM intact. No gross muscle atrophy, no edema, no contractures Neuro: Speech clear, face symmetrical and CN II-XII grossly intact with no noted focal neuro deficits Psych: Alert and oriented to person, place, time, and situation. Appropriate and pleasant affect. A total of 31 minutes of time were spent preparing this complex discharge summary. Pt was discharged on 06/21/22 11:06 AM. Patient was seen independently by Nurse Practitioner. This document was prepared using [employer] dictation software. Please allow for errors in assisted living coordinator while rare they do occur. Patient Condition at Discharge: Stable Plan - Discharge Summary New Discharge Prescriptions: Continue Cholecalciferol [Vitamin D3 (25 Mcg = 1000 Iu)] 50 mcg PO DAILY Ascorbic Acid [Vitamin C] 250 mg PO BID traZODone HCL 400 mg PO HS Thiamine [Vitamin B-1] 100 mg PO DAILY Ferrous Sulfate [Iron] 325 mg PO DAILY Multivitamins, Thera [Multivitamin (formulary)] 1 tab PO DAILY Ibuprofen [Motrin] 800 mg PO TID PRN PRN Reason: Pain Finasteride [Proscar] 5 mg PO DAILY Albuterol Sulfate [Ventolin HFA] 1 puff INHALATION RT-Q4H PRN PRN Reason: Shortness Of Breath Albuterol Nebulized [Ventolin Nebulized] 2.5 mg INHALATION RT-Q4H PRN PRN Reason: Shortness Of Breath Paliperidone IM [Invega Sustenna] 156 mg IM Q21D LORazepam [Ativan] 0.5 mg PO BID lisinopriL [Prinivil] 10 mg PO DAILY Lurasidone [Latuda] 80 mg PO HS Acamprosate Calcium [Campral] 333 mg PO TID Tamsulosin HCl [Flomax] 0.8 mg PO DAILY Pantoprazole [Protonix] 40 mg PO BID Lactose-Reduced Food [Ensure Plus] 1 can PO TID PRN PRN Reason: SUPPLEMENT Lidocaine 5% Patch [Lidoderm 5% Patch] 1 patch TOPICAL DAILY PRN PRN Reason: Pain Fluticasone Propion/Salmeterol [Fluticasone-Salmeterol 250-50] 1 puff INHALATION RT-BID Brimonidine Tartrate [Alphagan P 0.2% Oph Soln] 1 drop BOTH EYES DIRECTED Polyvinyl Alcohol/Povidone [Freshkote Eye Drop] 1 applic BOTH EYES QID Discontinued Doxycycline [Vibramycin] 100 mg PO BID 4 Days #8 capsule Discharge Medication List Acamprosate Calcium [Campral] 333 mg PO TID 12/06/21 [History] Ascorbic Acid [Vitamin C] 250 mg PO BID 12/06/21 [History] Cholecalciferol [Vitamin D3 (25 Mcg = 1000 Iu)] 50 mcg PO DAILY 12/06/21 [History] Ferrous Sulfate [Iron] 325 mg PO DAILY 12/06/21 [History] LORazepam [Ativan] 0.5 mg PO BID 12/06/21 [History] Lurasidone [Latuda] 80 mg PO HS 12/06/21 [History] Tamsulosin HCl [Flomax] 0.8 mg PO DAILY 12/06/21 [History] Thiamine [Vitamin B-1] 100 mg PO DAILY 12/06/21 [History] lisinopriL [Prinivil] 10 mg PO DAILY 12/06/21 [History] traZODone HCL 400 mg PO HS 12/06/21 [History] Albuterol Nebulized [Ventolin Nebulized] 2.5 mg INHALATION RT-Q4H PRN 06/14/22 [History] Albuterol Sulfate [Ventolin HFA] 1 puff INHALATION RT-Q4H PRN 06/14/22 [History] Brimonidine Tartrate [Alphagan P 0.2% Ophth Soln] 1 drop BOTH EYES DIRECTED 06/14/22 [History] Finasteride [Proscar] 5 mg PO DAILY 06/14/22 [History] Fluticasone Propion/Salmeterol [Fluticasone-Salmeterol 250-50] 1 puff INHALATION RT-BID 06/14/22 [History] Ibuprofen [Motrin] 800 mg PO TID PRN 06/14/22 [History] Lactose-Reduced Food [Ensure Plus] 1 can PO TID PRN 06/14/22 [History] Lidocaine 5% Patch [Lidoderm 5% Patch] 1 patch TOPICAL DAILY PRN 06/14/22 [History] Multivitamins, Thera [Multivitamin (formulary)] 1 tab PO DAILY 06/14/22 [History] Paliperidone IM [Invega Sustenna] 156 mg IM Q21D 06/14/22 [History] Pantoprazole [Protonix] 40 mg PO BID 06/14/22 [History] Polyvinyl Alcohol/Povidone [Freshkote Eye Drop] 1 applic BOTH EYES QID 06/14/22 [History] Patient Instructions/Handouts: Abuse of Alcohol (DC) Activity/Diet/Wound Care/Special Instructions: Must notify legal guardian prior to discharge. Activity: As tolerated. Diet: Heart healthy and carb consistent diet. Avoid salts, or foods with hidden salts such as canned or boxed foods and frozen dinners. Extra salt makes your heart work harder and traps the fluid in your body for longer. Special Instructions: Take all of your medications as directed and remember to keep all of your doctor's appointments and follow-up as needed. Avoid alcohol use. Thank you for allowing us to participate in your care, it was truly a pleasure having you for our patient!!! per the guardian - the pt can go home in a cab. [facility] : the billing address is [address] [id number] [facility] [id number] Discharge Disposition: HOME WITH HOME HEALTH SERVICES
[2022-06-21 11:46] VITALS: BP 151/75; PULSE 55; RESP 18
[2022-06-21 13:59] LABS: HCT 30.7 % (39.6-50.0); HGB 10.2 g/dL (13.0-17.0); Immature Platelet Fraction 7.7 % (1.1-6.1); MCH 32.2 pg (27.0-32.0); MCHC 33.2 g/dL (32.0-37.0); MCV 96.8 fL (80.0-97.0); NRBC Per 100 WBC 0 /100 WBCS (0.0-0.0); Platelet Count 44 X 10*3/uL (140-440); RBC 3.17 X 10*6/uL (4.40-5.60); RDW 13.5 % (11.5-14.5); WBC 1.76 X 10*3/uL (4.50-10.00)
[2022-06-22 08:04] LABS: Ethanol Negative (Negative); Isopropanol Negative (Negative)
== END 2022-06-21 13:28 | disposition home or self-care (01) | DRG 896 ==
LOC: EC 12:30 → 5NMEDONC 15:46
PROVIDERS: ADMIT Student in an Organized Health Care Education/Training Program; ATTEND Student in an Organized Health Care Education/Training Program
DX: F10.229 Alcohol dependence with intoxication, unspecified (principal); J18.9 Pneumonia, unspecified organism; D61.818 Other pancytopenia; E87.20 Acidosis, unspecified; F10.239 Alcohol dependence with withdrawal, unspecified; J44.9 Chronic obstructive pulmonary disease, unspecified; F20.9 Schizophrenia, unspecified; Z20.822 Contact with and (suspected) exposure to COVID-19; Z28.310 Unvaccinated for COVID-19; I10 Essential (primary) hypertension; K21.9 Gastro-esophageal reflux disease without esophagitis; N42.9 Disorder of prostate, unspecified; F17.200 Nicotine dependence, unspecified, uncomplicated; Y90.1 Blood alcohol level of 20-39 mg/100 ml; Z79.51 Long term (current) use of inhaled steroids; Z79.899 Other long term (current) drug therapy; W01.0XXA Fall on same level from slipping, tripping and stumbling without subsequent striking against object, initial encounter; Y92.524 Gas station as the place of occurrence of the external cause; Z88.8 Allergy status to other drugs, medicaments and biological substances; Z91.041 Radiographic dye allergy status
CPT/HCPCS: 36415; 70450; 71046; 72125; 80053; 80306; 80320; 83605; 83735; 84145; 84600; 85025; 85027; 87040; 87449; 87636; 93005; 94640; 94760; 96361; 96374; 99291